=== PATIENT | female | born 1995 | race Caucasian/White ===

== ENCOUNTER 2017-10-11 01:08 | Observation (INO) | payer MEDICAID, SELFPAY ==
[2017-10-11] VITALS (28 sets, daily range): BP systolic 85–188; BP diastolic 49–90; PULSE 74–114; RESP 13–20; TEMP 36.6–37.3; O2SAT 97–100; BMI 24.2; BMI 21.4; BMI 21.5
[2017-10-11 01:23] LABS: Absolute Lymphocyte Count 1.87 X10^3/ul (0.83-4.51); Absolute Neutrophil Count 5.4 X10^3/uL (2.0-7.7); Basophil# 0.03 X10^3/uL; Basophil% 0.4 % (0-1); Eosinophil# 0.14 X10^3/uL; Eosinophils% 1.7 % (0-5); Hematocrit 40.1 % (37-47); Hemoglobin 12.8 g/dl (12.0-15.0); Lymphocyte # 1.87 X10^3/ul (4.0); Lymphocyte % 22.1 % (19-41); Mean Corp Hgb Conc 31.9 g/gl (32-36); Mean Corpuscular Volume 90.7 fL (81-99); Mean Platelet Vol. 10.8 fl (6.2-12.0); Monocyte# 1.05 X10^3/uL; Monocyte% 12.4 % (0-10); Neutrophil # 5.37 X10^3/uL (2.7-7.7); Neutrophil % 63.3 % (47-70); Platelet Count 227 K/mm3 (150-450); RBC Distribution Width CV 12.9 % (11.6-14.6); RBC Distribution Width SD 42.5 fl (35.1-43.9); Red Blood Count 4.42 M/mm3 (4.2-5.4); White Blood Count 8.5 K/mm3 (4.4-11.0)
[2017-10-11 01:25] LABS: POSITIVE COUNT NO; POSITIVE DIFFERENTIAL NO; POSITIVE MORPHOLOGY NO
[2017-10-11 01:32] LABS: Anion Gap 8 (5-15); BUN 17 mg/dL (7-18); BUN/Creat Ratio 19.5 RATIO (10-20); Calcium,Total 9.3 mg/dL (8.5-10.1); Chloride 108 mmol/L (98-107); Creatinine, Serum 0.87 mg/dL (0.55-1.02); EST Glomerular Filtration Rate 87 mL/min (>60); Est Glom Filt Rate - Afr Amer 105 mL/min (>60); Estimated Creatinine Clearance 95.76 ml/min; Glucose 94 mg/dL (74-106); Potassium 3.7 mmol/L (3.5-5.1); Sodium Level 141 mmol/L (136-145)
[2017-10-11] MEDS: Activated Charcoal/Sorbitol 50 GM/240 ML BOT PO (01:34)
--- NOTE | 2017-10-11 01:39 | ED.DCSUM_ITS ---
- ER Visit Summary Date of Service: 10/11/17 Chief Complaint: Reported overdose on possible blood pressure medications. History of Present Illness: The patient is a 22 F no significant past medical history. Ab0. Reportedly patient may have overdosed on blood pressure medication she had used in the past when she was . The label was ripped off of the bottle so we are unsure of the number of pills and what the medication is exactly. Reportedly there may have been as many as 30+ pills. She reportedly took this about 1 hour ago. Reportedly per the paramedics and family there was a suicide note left. She denies prior psychiatric history or prior suicide attempt. Family called the squad. Physical Examination: Young female. Vital signs are stable. She is afebrile. Her arms and legs are trembling that is intentional movement. HEENT exam unremarkable. Her eyes are closed but she will open them on command. There are equal and symmetrical. 3 mm bilaterally. No facial trauma. Moist mucous membranes. Neck nontender. No lymphadenopathy. Lungs clear to auscultation bilaterally. Heart regular rhythm no murmur. Rate about 85. Chest wall nontender. Abdomen soft nontender. No signs of trauma. Pelvic girdle intact. She is moving all 4 extremities. They are neurovascularly intact. She has equal symmetrical director of search engine optimization strength. No deformities. Equal and symmetrical radial and DP pulses. No signs of trauma. No track lopez. Back nontender. Skin unremarkable. Neurologically she is awake but she is a limited informant. She does follow commands. Test Results: CBC normal. Hemoglobin of 12. Normal white count. Electrolytes unremarkable. Normal gap of 8. Normal creatinine. Serum test negative. Tox screen pending. Alcohol negative. Salicylates negative. Tylenol negative. Emergency Department Course and Treatment: Patient will undergo ED mental health testing. This appears to be an intentional overdose as a suicide attempt. Depending on what the medication is this could be a serious attempt. She will be treated with charcoal since the medication was reportedly ingested within the last 1-2 hours. Currently her vital signs are stable as is her blood pressure and heart rate. Treatment Plan: According the patient's last Google search and a computer the overdose may have been nifedipine. I specifically asked her that and is unsure if that is what she took or not. She has been treated with oral charcoal and a liter of normal saline. Currently she is stable on her blood pressure and heart rate remained stable the entire time. Disposition: Admission Impression: Acute intentional overdose of uncertain medication Possible calcium channel joelle overdose Suicide attempt This note was generated with [employer] dictation software. It may contain incorrect words, spelling, and punctuation that were not noted in review of the chart prior to signing ED Disposition - Plan for ED Patient: Chief Complaint: Overdose Referrals: [facility] Doctor,Out of [NON-STAFF] -
--- OUTSIDE RECORDS SUMMARY | 2017-10-11 01:39 | XMS RPT_ITS ---
:1995 Demographics Phone Unavailable Preferred Language [facility] Marital Status Unknown Jewish Affiliation Unknown Race Unknown Ethnic Group Unknown Author Organization [place] Care Team Providers Name Role Phone Tavo Ashley Attending Unavailable PROBLEMS PROBLEMS No Problem Records FoundPROCEDURES PROCEDURES No Procedure Records FoundRESULTS RESULTS CBC W/DIFF, AUTOMATED Collected: 10/11/2017 Status: F Source: [place] 12:10 AM [facility] [place] CODE TESTS RESULT OUT OF RANGE REFERENCE UNITS LAB L100.1000 Normal 4.4-11.0 K/mm3 WBC 8.5 LAB L100.1200 Normal 4.2-5.4 M/mm3 RBC 4.42 LAB L100.1300 Normal 12.0-15.0 g/dl HGB 12.8 LAB L100.1400 Normal 37-47 % HCT 40.1 LAB L100.1500 Normal 81-99 fL MCV 90.7 LAB L100.1600 Normal 27.0-32.0 pg MCH 29.0 LAB L100.1700 Low 32-36 g/gl MCHC 31.9 LAB L100.1810 Normal 11.6-14.6 % RDW 12.9 CV LAB L100.1820 Normal 35.1-43.9 fl RDW 42.5 SD LAB L100.1900 Normal 150-450 K/mm3 PLT 227 LAB L100.2000 Normal 6.2-12.0 fl MPV 10.8 LAB L100.2100 Normal 47-70 % NEUT% 63.3 LAB L100.2200 Normal 19-41 % LY% 22.1 LAB L100.2300 High 0-10 % MONO% 12.4 LAB L100.2400 Normal 0-5 % EO% 1.7 LAB L100.2500 Normal 0-1 % BASO% 0.4 LAB L100.2550 Normal 0.0-0.9 % IM 0.100 GRAN % Result Comment: IG% - Immature Granulocytes (promyelocytes, myelocytes andmetamyelocytes) > 1% indicates that a LEFT SHIFT is Present. LAB L100.2620 Normal 2.0-7.7 X10 3/uL Absolute Neut 5.4 LAB L100.2720 Normal 0.83-4.51 X10 3/ul Absolute Lymph 1.87 Performed By: #### L100.0100 ####[facility] [id number] [place], [place], [id number] BASIC METABOLIC Collected: 10/11/2017 Status: F Source: [place] PROFILE (BMP) 12:10 AM [facility] [place] CODE TESTS RESULT OUT OF RANGE REFERENCE UNITS LAB L501.0100 Normal 74-106 mg/dL GLU 94 Result Comment: Please note revised GLUCOSE reference range pgizofyio21/02/2018. LAB L501.1000 Normal 7-18 mg/dL BUN 17 LAB L501.1100 Normal 0.55-1.02 mg/dL CREAT,SERUM 0.87 Result Comment: The validity of the calculated GFR AND GFRAA in patients over70 years has not been determined. Clinical correlation isessential. LAB L501.1110 Normal >60 mL/min EST GFR 87 Result Comment: Non- GFR Calc LAB L501.1115 Normal >60 mL/min EST GFR - 105 AA Result Comment: GFR Calc LAB L501.1255 Normal ml/min Estimated 95.76 CRCL LAB L501.1300 Normal 10-20 RATIO BUN/CRE 19.5 LAB L501.2200 Normal 8.5-10 mg/dL CA 9.3 .1 LAB L501.5300 Normal 136-14 mmol/L NA 141 5 LAB L501.5600 Normal 3.5-5. mmol/L K 3.7 1 LAB L501.5900 High 98-107 mmol/L CL 108 LAB L501.6100 Normal 21.0-3 mmol/L CO2 25.0 2.0 LAB L501.6200 Normal 5-15 GAP 8 Performed By: #### L500.2500 ####[facility] [id number] [place], [address] ALLERGIES ALLERGIES DATE TYPE / CODE NAME / CODE REACTION SEVERITY SOURCE 10/11/2017 Drug No Known Unknown [facility] Allergy/4160 Allergies/F00 [facility] [address]32(SNOMED [id number](RXNOR Repository CT) M) ENCOUNTERS ENCOUNTERS ADMIT/DISCHARGE ACCOUNT ADMITTING ENCOUNTER LOCATION SOURCE NUMBER CLASS 10/11/2017 [id number] Ambulatory [place] 6 [facility] ing:ED Repository PAYERS PAYERS ENCOUNTER GUARANTOR PAYER SUBSCRIBER SOURCE 10/11/2017 Primary NOT GIVENUNK [place] Insurance:SELF PAY [facility] Number: Effective Repository Date:2017-10-11
[2017-10-11 01:44] LABS: Pregnancy, Serum, hCG Quali. NEGATIVE Negative (0-9 Nonpreg)
[2017-10-11 01:53] LABS: Acetaminophen (Tylenol) Level < 2.0 ug/mL (10.0-30.0); Salicylate < 1.7 mg/dL (2.8-20.0)
--- NOTE | 2017-10-11 02:02 | ED.RN ---
PATIENT FAMILY THINKS PATIENTS MEDICATION SHE TOOK WAS NICARDIPINE 30 TABLETS
[2017-10-11] MEDS: 0.9% Normal Saline 1,000 ML 999 ML IV (02:24)
--- NOTE | 2017-10-11 03:01 | HP.PCM_ITS ---
Problem List (1) Overdose Status: Acute (2) QT prolongation Status: Acute History of Present Illness Date of Admission: 10/11/17 Chief Complaint: Intentional overdose The patient is a 22 year old F with last delivery 2 months ago who was brought by the paramedics because of an intentional overdose. After the delivery of her last baby, she was placed on blood pressure medication; as such she had some of this blood pressure medication with her. Patient reportedly took 20 pills of this blood pressure medication she had in stock. She is unsure of the exact name of the medication but she thinks it is nifedipine. Also, reportedly her last google search was on nifedipine. Reportedly,a suicidal note was found with patient. Since patient reached the emergency department about 1 hour after ingestion of the medication she was giving activated charcoal, which she drank. She also received normal saline bolus at emergency department. The patient stated that she lives at [place] with her but she came to was her mother in [place]. She reports left-sided chest pain and generalized abdominal pain. Patient personally denies suicide ideation to me. She is sure that she took exactly 20 pills of the unknown pill which may be nifedipine. Allegedly, she had taken out the label of the bottle of the medication which she took. Past Medical History Past Medical History (Chronic Problems): Chronic Problems (Last Updated 10/11/17 @ 03:14 by Flavio Nix MD) Hypertension (Chronic) Medical History: Medical History (Last Updated 10/11/17 @ 03:14 by Flavio Nix MD) Gestational hypertension O13.9 Allergies No Known Allergies Allergy (Verified 10/11/17 01:12) Home Medications: Ambulatory Orders Medication Instructions Recorded NK [NK] 10/11/17 Surgical History: - - Laparoscopic exploration of abdomen Psychiatric History: - - Denies any psychiatric Lives: With Family Smoking Status: Never smoker Tobacco Use: Non-smoker Alcohol: None Drugs: None Review of Systems Constitutional: Denies: Chills, Fever, Weight Change Eyes: Reports: Blurred vision HEENT: Denies: Head Aches, Sinus Congestion, Sinus Drainage Cardiovascular: Reports: Chest Pain Respiratory: Denies: Cough, Shortness of breath at rest, Sputum production Gastrointestinal: Reports: Abdominal Pain, Nausea Genitourinary: Denies: Dysuria Musculoskeletal: Denies: Joint Pain, Joint Tenderness Skin: Denies: Rash, Wounds Neurological: Denies: Numbness, Tingling, Focal weakness Psychiatric: Denies: Anxiety, Depression, Homicidal Ideations, Suicidal Ideations Hematologic/ Lymphatic: Denies: Easy Bruising, Easy Bleeding VTE Information - Inpt Only VTE Present on Admission: No VTE Mechan Device Prophylaxis: None VTE Pharm Prophylaxis ordered?: No Reason prophylaxis not ordered:: Treatment Not Indicated Patient Problems: Active and Suspected Problems (Last Updated 10/11/17 @ 03:14 by Flavio Nix MD) Overdose (Acute) QT prolongation (Acute) - Physical Exam General: Alert, Oriented x3, Cooperative HEENT: Atraumatic, PERRLA, EOMI, Normocephalic Neck: Supple, No JVD, Negative Carotid Bruits Lungs: Clear to auscultation, Normal air movement Cardiovascular: Regular rate, No murmurs Abdomen: Soft, Non Tender, Non-Distended Extremities: No edema, Capillary Refill Less than 3 Seconds Skin: No rashes, No breakdown Musculoskeletal: No Tenderness to Palpation of Joints or Extremities Neurological: Cranial nerves II-XII grossly intact Psych/Mental Status: Normal Affect, Appropriate Vital Signs Temp Pulse Resp BP Pulse Ox 97.9 F 94 16 123/73 H 99 10/11/17 01:09 10/11/17 02:39 10/11/17 02:39 10/11/17 02:39 10/11/17 02:39 Oxygen Delivery Method Room Air Weight: 68.1 kg Body Mass Index (BMI) 24.2 Laboratory Tests Past 24 Hrs 10/11/17 10/11/17 10/11/17 00:10 00:10 00:10 WBC 8.5 RBC 4.42 Hgb 12.8 Hct 40.1 MCV 90.7 MCH 29.0 MCHC 31.9 L RDW 12.9 RDW Differential 42.5 Plt Count 227 MPV 10.8 Immature Gran % (Auto) 0.100 Neut % (Auto) 63.3 Lymph % (Auto) 22.1 [place] % (Auto) 12.4 H Eos % (Auto) 1.7 Baso % (Auto) 0.4 Absolute Neuts (auto) 5.4 Absolute Lymphs (auto) 1.87 Total Counted Not Reportable Sodium 141 Potassium 3.7 Chloride 108 H Carbon Dioxide 25.0 Anion Gap 8 BUN 17 Creatinine 0.87 Estim Creat Clear Calc 95.76 Est GFR (MDRD) Af Amer 105 Est GFR (MDRD) Non-Af 87 BUN/Creatinine Ratio 19.5 Glucose 94 Calcium 9.3 Serum , Qual Salicylates Acetaminophen Ethyl Alcohol 10.0 10/11/17 10/11/17 00:10 01:10 WBC RBC Hgb Hct MCV MCH MCHC RDW RDW Differential Plt Count MPV Immature Gran % (Auto) Neut % (Auto) Lymph % (Auto) [place] % (Auto) Eos % (Auto) Baso % (Auto) Absolute Neuts (auto) Absolute Lymphs (auto) Total Counted Sodium Potassium Chloride Carbon Dioxide Anion Gap BUN Creatinine Estim Creat Clear Calc Est GFR (MDRD) Af Amer Est GFR (MDRD) Non-Af BUN/Creatinine Ratio Glucose Calcium Serum , Qual NEGATIVE Salicylates < 1.7 L Acetaminophen < 2.0 L Ethyl Alcohol Assessment/Plan All Active Problems (Last Updated 10/11/17 @ 03:14 by Flavio Nix MD) Overdose (Acute) QT prolongation (Acute) The patient is a 22 year old F who reportedly took 20 tablets of of an unknown pill, which may be nifedipine, and was given activated charcoal at emergency department. Intentional overdose Patient is hemodynamically stable. Supportive treatment with antiemetics and normal saline Close monitoring at the ICU Telemetry monitoring. Vital signs per ICU protocol Salicylate level, Tylenol level and ethanol level unremarkable DAU10 pending EKG ordered Serial troponin Repeat BMP and CBC in a.m. Suicidal precautions Reglan for nausea Ibuprofen for pain. QT prolongation Avoid QT prolongation drugs. Reglan for nausea. DVT prophylaxis Low risk No treatment indicated. Code Visit OBSV E&M: 14881 Initial observation care L3
--- NOTE | 2017-10-11 03:56 | EKG12_ITS ---
Test Reason : ADM EKG Blood Pressure : / mmHG Vent. Rate : 097 BPM Atrial Rate : 097 BPM P-R Int : 174 ms QRS Dur : 094 ms QT Int : 396 ms P-R-T Axes : 052 038 033 degrees QTc Int : 502 ms Normal sinus rhythm Prolonged QT Abnormal ECG Confirmed by BILL BROOKE, TIANA ([id number]), news video editor ALVINA FELIPE ([id number]) on 10/12/2017 12:55:40 PM Referred By: ANA CRISTINA Confirmed By:TIANA KHAN MD
[2017-10-11] MEDS: 0.9% Normal Saline 1,000 ML 75 ML IV (04:15)
[2017-10-11] MEDS: 0.9% NaCl Peripheral Flush Adult/Peds IV (04:15)
[2017-10-11 04:28] LABS: Anion Gap 12 (5-15); BUN 15 mg/dL (7-18); BUN/Creat Ratio 16.3 RATIO (10-20); Calcium,Total 8.3 mg/dL (8.5-10.1); Chloride 112 mmol/L (98-107); Creatinine, Serum 0.92 mg/dL (0.55-1.02); EST Glomerular Filtration Rate 82 mL/min (>60); Est Glom Filt Rate - Afr Amer 99 mL/min (>60); Estimated Creatinine Clearance 97.58 ml/min; Glucose 113 mg/dL (74-106); Potassium 3.8 mmol/L (3.5-5.1); Sodium Level 146 mmol/L (136-145)
--- NOTE | 2017-10-11 04:29 | NURSING ---
Spoke with Satish at poison control center. Satish suggests at least a 10 hour observation time, watch for hypotension, bradycardia, rebound tachycardia, and prolonged QT. Also recommend avoiding phenergan and zofran for nausea, give compazine instead.
[2017-10-11 05:34] LABS: Osmolality, Serum 302 mOsm/KG (275-295)
[2017-10-11 05:47] LABS: M R Staph aureus DNA By PCR Negative (Negative); Probe Check PASS; Specimen Processing Control PASS
--- NOTE | 2017-10-11 06:29 | PCM.CON.CC ---
Reason for Consult Date of Consultation: 10/11/17 Reason for Consultation: Intentional overdose History of Present Illness: The patient is a 22-year-old female, with a history as outlined below, who presented to the emergency department on October 11 after a reported intentional overdose of a presumed calcium channel joelle. The patient reports that she ingested approximately 20 tablets of her outpatient antihypertensive medication, which she believes is called nifedipine. She denies ever having attempted suicide previously. She does report having dealt with depression since delivering her last child 2 months ago. She has never been evaluated previously for underlying depression symptoms. On presentation to the emergency department, the patient was noted to be afebrile hemodynamically stable. She was maintaining appropriate oxygen saturations on room air. Laboratory evaluation revealed no evidence of a leukocytosis. Chemistry profile was largely unremarkable. test was negative. Troponins were negative. Toxicology screen was negative. The patient did receive activated charcoal while in the emergency department. She received supplemental IV fluids and was transferred to the medical intensive care unit for close monitoring. Past Medical History Past Medical History (Chronic Problems): Chronic Problems (Last Updated 10/11/17 @ 03:14 by Flavio Nix MD) Hypertension (Chronic) Medical History: Medical History (Last Updated 10/11/17 @ 03:14 by Flavio Nix MD) Gestational hypertension O13.9 Allergies No Known Allergies Allergy (Verified 10/11/17 01:12) Home Medications: Ambulatory Orders Medication Instructions Recorded NK [NK] 10/11/17 Surgical History: - - Laparoscopic exploration of abdomen Psychiatric History: - - Denies any psychiatric Lives: With Family Smoking Status: Never smoker Tobacco Use: Non-smoker Alcohol: None Drugs: None Review of Systems Constitutional: Denies: Chills, Fever Eyes: Denies: Blurred vision, Double vision HEENT: Denies: Head Aches, Sinus Congestion, Sinus Drainage Cardiovascular: Denies: Chest Pain, Light Headedness, Palpitations Respiratory: Denies: Cough, Shortness of breath at rest, Sputum production Gastrointestinal: Denies: Abdominal Pain, Nausea, Vomiting Genitourinary: Denies: Dysuria Musculoskeletal: Denies: Joint Pain, Joint Tenderness Skin: Denies: Rash, Wounds Neurological: Denies: Numbness, Tingling, Focal weakness Psychiatric: Reports: Depression Hematologic/ Lymphatic: Denies: Easy Bruising, Easy Bleeding Objective: The patient's most recent lab work, culture data and imaging studies have all been personally reviewed. - Physical Exam General: Alert, Oriented x3, Cooperative, No apparent distress HEENT: Atraumatic, PERRLA, Normocephalic Oral: No Gingival or Mucosal Lesions/ Ulcerations Neck: Supple, No Nodes, Trachea Midline Lungs: Normal air movement, No rhonchi, No wheeze, No rales Cardiovascular: Regular rate, Regular Rhythm, Normal S1, Normal S2, No murmurs, No rub noted, No Gallop Abdomen: Bowel Sounds Present, Soft, Non Tender, Non-Distended Extremities: No clubbing, No cyanosis, No edema Skin: No rashes, No breakdown Musculoskeletal: No Tenderness to Palpation of Joints or Extremities, No Muscle Wasting Lymphatic: No Cervical, Supraclavicular, or Inguinal Adenopathy Neurological: Neuro grossly intact Psych/Mental Status: Alert and oriented to time, place, person, mood and affect Vital Signs Temp Pulse Resp BP Pulse Ox 98.5 F 81 17 101/62 97 10/11/17 03:50 10/11/17 04:35 10/11/17 04:35 10/11/17 04:35 10/11/17 04:35 Oxygen Delivery Method Room Air Weight: 141 lb 5.061 oz Body Mass Index (BMI) 21.4 Intake and Output for Last 24 Hours 10/09/17 10/10/17 10/11/17 23:59 23:59 23:59 Intake Total 1145 / 1145 Output Total 400 / 400 Balance 745 / 745 Laboratory Tests Past 24 Hrs 10/11/17 10/11/17 10/11/17 03:45 03:45 03:45 Sodium 146 H Potassium 3.8 Chloride 112 H Carbon Dioxide 22.0 Anion Gap 12 BUN 15 Creatinine 0.92 Estim Creat Clear Calc 97.58 Est GFR (MDRD) Af Amer 99 Est GFR (MDRD) Non-Af 82 BUN/Creatinine Ratio 16.3 Glucose 113 H Serum Osmolality 302 H Calcium 8.3 L Troponin I MRSA (PCR) Negative 10/11/17 03:45 Sodium Potassium Chloride Carbon Dioxide Anion Gap BUN Creatinine Estim Creat Clear Calc Est GFR (MDRD) Af Amer Est GFR (MDRD) Non-Af BUN/Creatinine Ratio Glucose Serum Osmolality Calcium Troponin I < 0.015 MRSA (PCR) Assessment/Plan RECOMMENDATIONS: 1. Continue to monitor heart rate (Qt interval) and hemodynamics closely. 2. Continue supplemental IV fluids as needed. 3. Mobilize patient today. 4. Encourage incentive spirometer use while in bed. 5. Behavioral health/crisis evaluation. IMPRESSIONS: 1. Intentional overdose/suicide attempt The patient reportedly ingested approximately 20 tablets of nifedipine. She did receive activated charcoal in the emergency department. She has been hemodynamically stable overnight and did not experience any significant bradycardic events. Given her lack of symptoms, there is no indication for any additional aggressive measures. From my perspective, the patient is medically stable for evaluation by behavioral health/crisis today. Recommend mobilizing patient to ensure that she does not experience any dizziness or lightheadedness. 2. depression Recommend evaluation by behavioral health/crisis, as noted above. 3. Hypertension The patient's home antihypertensive regimen has been discontinued at this time. Will reevaluate the need for ongoing antihypertensive medication use, prior to discharge. This note was generated with [employer] dictation software. It may contain incorrect words, spelling, and punctuation that were not noted in checking the note before signing. Code Visit Inpatient E&M: 14012 Init Hosp L2
[2017-10-11 07:23] LABS: Amphetamine Urine VISTA NEGATIVE (<1000 ng/mL); Barbiturate Urine VISTA NEGATIVE (< 200 ng/mL); Benzodiazepine Urine VISTA NEGATIVE (< 200 ng/mL); Cocaine Urine VISTA NEGATIVE (< 300 ng/mL); Ecstacy Urine VISTA NEGATIVE (< 500 ng/mL); Methadone Urine VISTA NEGATIVE (< 300 ng/mL); PCP Urine VISTA NEGATIVE (< 25 ng/mL); THC Urine VISTA NEGATIVE (< 50 ng/mL); Vista UDS pH Range 6
[2017-10-11 09:47] LABS: Mucous, Urine 0 SEEN /hpf (<or=2+); Red Blood Cells-Urine 0 SEEN /hpf (0-5); White Blood Cells 0 SEEN /hpf (0-5)
[2017-10-11 09:51] LABS: Color, Urine Yellow (Yellow); Glucose, Dipstick Normal (Normal); Ketone-Dipstick Negative (Negative); Leukocyte Esterase-Dipstick Negative /ul (Negative); Nitrite-Dipstick Negative (Negative); Occult Blood-Urine Negative /ul (Negative); Protein-Dipstick Negative (Negative); Urine Bilirubin Dipstick Negative (Negative); Urine Clarity Clear (Clear); Urine Urobilinogen Normal (Normal)
[2017-10-11 10:12] LABS: Bacteria 1+ /hpf (None Seen); Squamous Epithelial Cells - UA 0-5 SEEN /hpf (5-10)
[2017-10-11] MEDS: Ibuprofen 400 MG Tablet PO ×2 (12:01→19:17)
[2017-10-11] MEDS: Metoclopramide 10 MG/2 ML Vial 5 MG IV (12:02)
--- NOTE | 2017-10-11 14:21 | CHAPLAIN ---
Type of Pastoral Visit _x__ Initial Visit ___ Follow-up Visit ___ On-call Visit ___ General Patient Visit ___ Spiritual Assessment ___ Family Conference ___ Bereavement ___ Rapid Response ___ Code Blue ___ Other (describe below) Pastoral Care Referral From _x__ Patient ___ Family _x__ Nurse ___ Physician ___ Fig Caprifier ___ Call Center Representative ___ Other (describe below) Sacrament/Intervention _x__ Active listening ___ Anointing ___ Jain ___ Bereavement ___ Communion _x__ Clara exploration ___ ___ Life review _x__ Prayer ___ Reconciliation ___ Sacrament of Sick _x__ Supportive presence ___ Wedding ___ Other (describe below) Pastoral Comments patient gives information on current family status and that she is now doing much better emotionally; pt welcomes prayer support and asks for help in accepting forgiveness for what I have done; pt says she will be staying with local family for a month or more and that should be a good situation she believes
--- NOTE | 2017-10-11 16:18 | PCM.PN.BLA ---
Progress Note [id number] lady who is 2 weeks admitted following an intentional drug overdose with with nifedipine. Patient denies any previous history of suicide attempts she however did experience depression. Patient has been admitted to the intensive care unit where she is currently undergoing close monitoring. Patient has been seen and examined. Her initial assessment including history and physical, diagnostic data as well as management orders reviewed Patient medically stable to be evaluated by the crisis team
--- NOTE | 2017-10-11 19:40 | NURSING ---
Pt d/c'd to [facility]. [facility] to transport. Pt off floor with squad without incident.
--- NOTE | 2017-10-12 07:23 | PCM.DC.SUM ---
Discharge Date and Diagnosis Date of Admission: 10/11/17 Date of Discharge: 10/11/17 - Primary Discharge Diagnosis Suicide attempt - Secondary Discharge Diagnosis Chronic Problems (Last Updated 10/11/17 @ 03:14 by Flavio Nix MD) Hypertension (Chronic) Hospital Course and Treatment Consultations 10/11/17 09:08 Consult: Mental Health/Crisis Routine Reason for consult?: Suicide attempt Date Notified:: 10/11/17 Time notified:: 09:08 Summary of Care Provided: Patient is a 22-year-old lady who is 2 month admitted following an intentional drug overdose with with nifedipine. Patient denied any previous history of suicide attempts she however did experience depression. Patient apparently took multiple tablets of nifedipine. Patient was admitted to the intensive care unit where she is currently undergoing close monitoring. Patient was evaluated by the crisis team after stabilization of her medical condition. Patient was deemed appropriate for inpatient treatment of his severe depression with suicidal attempt. The crisis team made arrangement for patient to be transferred. Discharge Diet: No Restrictions Home Medications: Medications to take at Discharge NK [NK] 10/11/17 Primary Care Physician: Laura Jacobson,Out of [NON-STAFF] - Medical Necessity - Tobacco Use Smoking Status: Never smoker Tobacco Use: Non-smoker Meaningful Use Info Meaningful Use Diagnoses (Choose all that apply): None applicable Code Visit OBSV E&M: 34134 Observation care discharge
== END 2017-10-11 19:40 ==
LOC: ED 01:36 → ICU 03:33
PROVIDERS: Internal Medicine Critical Care Medicine; Admitting Provider Hospitalist; Emergency Provider Emergency Medicine; Visit Provider Internal Medicine
DX: F53 Mental and behavioral disorders associated with the puerperium, not elsewhere classified (principal); T46.1X2A Poisoning by calcium-channel blockers, intentional self-harm, initial encounter; I10 Essential (primary) hypertension; Z79.899 Other long term (current) drug therapy; I45.81 Long QT syndrome
CPT/HCPCS: 80048; 80307; 80320; 80329; 81001; 83930; 84484; 84703; 85025; 87641; 93005; 96361; 96374; 99218; 99285; J7030; A4216; G0378; G0480

== ENCOUNTER → 2018-06-28 14:00 | Outpatient (CLI) | payer MEDICAID, SELFPAY ==
[2018-06-28 18:29] LABS: Chlamydia Trachomatis by PCR Negative (Negative); Neisserai gonorrhoeae by PCR Negative (Negative); Probe Check PASS; Specimen Processing Control PASS
[2018-06-28 18:30] LABS: Sample Adequacy Control PASS
[2018-07-01 13:03] LABS: HPV Reflexed? NOT INDICATED
== END ==
PROVIDERS: Visit Provider Obstetrics & Gynecology
DX: Z12.4 Encounter for screening for malignant neoplasm of cervix (principal); Z11.3 Encounter for screening for infections with a predominantly sexual mode of transmission
CPT/HCPCS: 87491; 87591; 88175; G0145

== ENCOUNTER 2018-07-06 10:01 | Emergency (ER) | payer MEDICAID, SELFPAY ==
[2018-07-06 10:02] VITALS: BP 143/95; PULSE 94; RESP 16; TEMP 36.9; O2SAT 99; BMI 21.1
[2018-07-06 10:28] LABS: Absolute Lymphocyte Count 1.34 X10^3/ul (0.83-4.51); Absolute Neutrophil Count 6.2 X10^3/uL (2.0-7.7); Basophil# 0.03 X10^3/uL; Basophil% 0.4 % (0-1); Eosinophil# 0.08 X10^3/uL; Eosinophils% 0.9 % (0-5); Hemoglobin 12.9 g/dl (12.0-15.0); Lymphocyte # 1.34 X10^3/ul (4.0); Lymphocyte % 15.7 % (19-41); Mean Corp Hgb Conc 33.1 g/gl (32-36); Mean Corpuscular Hgb 29.6 pg (27.0-32.0); Mean Corpuscular Volume 89.4 fL (81-99); Mean Platelet Vol. 10.4 fl (6.2-12.0); Monocyte# 0.81 X10^3/uL; Monocyte% 9.5 % (0-10); Neutrophil # 6.24 X10^3/uL (2.7-7.7); Neutrophil % 73.3 % (47-70); Platelet Count 234 K/mm3 (150-450); RBC Distribution Width CV 12.1 % (11.6-14.6); RBC Distribution Width SD 38.9 fl (35.1-43.9); Red Blood Count 4.36 M/mm3 (4.2-5.4); White Blood Count 8.5 K/mm3 (4.4-11.0)
[2018-07-06] MEDS: Metoclopramide 10 MG/2 ML Vial IV (10:30)
[2018-07-06] MEDS: DiphenhydrAMINE 50 MG/ML Syringe 25 MG IV (10:31)
[2018-07-06 10:32] LABS: POSITIVE COUNT NO; POSITIVE DIFFERENTIAL NO; POSITIVE MORPHOLOGY NO
[2018-07-06] MEDS: Acetaminophen 500 MG Tablet 1000 MG PO (10:33)
[2018-07-06 10:34] LABS: Anion Gap 4 (5-15); BUN 11 mg/dL (7-18); Calcium,Total 8.4 mg/dL (8.5-10.1); Chloride 108 mmol/L (98-107); Creatinine, Serum 0.73 mg/dL (0.55-1.02); EST Glomerular Filtration Rate 106 mL/min (>60); Est Glom Filt Rate - Afr Amer 128 mL/min (>60); Estimated Creatinine Clearance 121.25 ml/min; Glucose 98 mg/dL (74-106); Potassium 3.7 mmol/L (3.5-5.1); Sodium Level 137 mmol/L (136-145)
--- NOTE | 2018-07-06 10:40 | ED.VISSUMM ---
- ER Visit Summary Date of Service: 07/06/18 Chief Complaint: Headache History of Present Illness: The patient is a 22 F currently , last menstrual cycle May 23. Patient reports history of migraines. She states had a mild headache when she got up this morning that progressively worsened. She states the pain is above both eyes which is typical of her migraine pattern. She does have photophobia and had blurry vision from her right eye. Patient is also had this with prior migraines. She states she did vomit twice. Symptoms worsened while she was driving. She pulled over to the side of the road and called EMS. Patient states symptoms seem to be improving at this time. Physical Examination: Vital signs unremarkable. Patient sitting upright in bed in no acute distress. Heart is regular rate and rhythm. Lung sounds are clear. Abdomen soft nontender. Neuro exam is normal. Test Results: CBC and chemistry studies normal. Quant is 60,656. Emergency Department Course and Treatment: Patient was given Tylenol, Reglan, Benadryl, and IV fluids. On repeat evaluation she does feel improved. Bedside ultrasound is performed. There is evidence of an intrauterine with heartbeat noted. Treatment Plan: [] Disposition: Discharge Impression: 1. Migraine, improved 2. First trimester This note was generated with [employer] dictation software. It may contain incorrect words, spelling, and punctuation that were not noted in review of the chart prior to signing ED Disposition - Plan for ED Patient: Disposition: Home or Assisted Living Instructions: ED Headache Migraine Referrals: Deidre Root MD [STAFF PHYSICIAN] - Keep Margie appointment
[2018-07-06] MEDS: Ondansetron 4 MG/2 ML Vial IV (11:44)
[2018-07-06 12:50] VITALS: BP 108/65; PULSE 80; RESP 16; O2SAT 99
--- OUTSIDE RECORDS SUMMARY | 2018-07-06 18:06 | XMS RPT_ITS | CCD ---
:1995 External Reference #:[id number] Author Organization [facility] [employer] Care Team Providers Name Role Phone Unavailable Unavailable Unavailable Allergies Reported Allergen Reaction(s) Severity Date of Onset Location Amoxicillin Translations: [facility] [ amoxicillin] [facility] Repository Morphine Translations: [ [facility] morphine] [facility] Repository Results Result Name Value Range Unit Interpretation Flag Date Location auto diff on 2017-08-04 Basophils #/vol (Bld) 0.0 0.0-0.2 E3/mcL Normal 08-04-2017 [facility] ([id number]) Comment: Order Comment: Order Added by Discern Expert. Performed By: #### [id number] #### [facility] [place] [address] Basophils/100 WBC (Bld) 0.3 0.0-2.0 % Normal 08-04-2017 [facility] ([id number]) Comment: Order Comment: Order Added by Discern Expert. Performed By: #### [id number] #### [facility] [address] [place] [address] 17760 Eos Absolute 0.2 0.0-0.7 E3/mcL Normal 08-04-2017 [facility] (21383) Comment: Order Comment: Order Added by Discern Expert. Performed By: #### [id number] #### [facility] [place] [address] Eosinophils/100 WBC (Bld) 2.1 0.0-11.0 % Normal 08-04-2017 [facility] ([id number]) Comment: Order Comment: Order Added by Discern Expert. Performed By: #### [id number] #### [facility] [address] [place] [address] 21091 Lymphocytes #/vol (Bld) 2.3 1.2-3.4 E3/mcL Normal 08-04-2017 [facility] (00014) Comment: Order Comment: Order Added by Discern Expert. Performed By: #### [id number] #### [facility] [address] [place] [address] 00382 Lymphocytes/100 WBC (Bld) 20.2 20.0-55.0 % Normal 08-04-2017 [facility] (20390) Comment: Order Comment: Order Added by Discern Expert. Performed By: #### [id number] #### [facility] [address] [place] [address] [place] Absolute 1.1 0.0-0.7 E3/mcL High 08-04-2017 [facility] (25249) Comment: Order Comment: Order Added by Discern Expert. Performed By: #### [id number] #### [facility] [address] [place] [address] 93277 Monocytes/100 WBC (Bld) 9.6 0.0-10.0 % Normal 08-04-2017 [facility] (70645) Comment: Order Comment: Order Added by Discern Expert. Performed By: #### [id number] #### [facility] [address] [place] [address] 75059 Neutro Absolute 7.7 1.4-6.5 E3/mcL High 08-04-2017 [facility] (89811) Comment: Order Comment: Order Added by Discern Expert. Performed By: #### [id number] #### [facility] [address] [place] [address] 86443 Neutro Auto 67.8 37.0-75.0 % Normal 08-04-2017 [facility] (00431) Comment: Order Comment: Order Added by Discern Expert. Performed By: #### [id number] #### [facility] [address] [place] [address] 76204 c urine on 2018-06-15 C Urine Final Report: 7,000 cfu/ml Normal 06-15-2018 [facility] Streptococcus agalactiae System ([id number]) (Group B) Comment: Performed By: #### [id number] #### [facility] RemHemo [address] [place] [address] 45987 cbc w/ auto diff on 2017-08-04 Erythrocyte distribution 14.7 11.5-14.5 % High 08-04-2017 [facility] width Ratio (RBC) [facility] (86614) Comment: Performed By: #### [id number] #### [facility] [address] [place] [address] Hematocrit Volume Fraction 36.4 36.0-48.0 % Normal 08-04-2017 [facility] ([facility] ([id number]) Comment: Performed By: #### [id number] #### [facility] [address] [place] [address] Hemoglobin mass conc 12.0 12.0-16.0 G/DL Normal 08-04-2017 [facility] (d) [facility] (29592) Comment: Performed By: #### [id number] #### [facility] [address] [place] [address] MCH Entitic mass (RBC) 29.3 27.0-31.0 pg Normal 08-04-2017 [facility] ([id number]) Comment: Performed By: #### [id number] #### [facility] [address] [place] [address] MCHC mass conc (RBC) 32.9 33.0-37.0 G/DL Low 08-04-2017 [facility] (69461) Comment: Performed By: #### [id number] #### [facility] [address] [place] [address] MCV Entitic volume 89.0 78.0-100.0 fL Normal 08-04-2017 [facility] (RBC) System (78208) Comment: Performed By: #### [id number] #### [facility] [address] [place] [address] Platelet mean volume 10.1 7.4-11.0 fL Normal 08-04-2017 [facility] Entitic volume (Bld) System (39996) Comment: Performed By: #### [id number] #### [facility] [address] [place] [address] Platelets #/vol (Bld) 206 130-400 E3/mcL Normal 08-04-2017 [facility] (62219) Comment: Performed By: #### [id number] #### [facility] [address] [place] [address] RBC #/vol (Bld) 4.09 3.90-5.40 E6/mcL Normal 08-04-2017 [facility] (27295) Comment: Performed By: #### [id number] #### [facility] [address] [place] [address] WBC #/vol (Bld) 11.3 3.6-11.0 E3/mcL High 08-04-2017 [facility] (47387) Comment: Performed By: #### [id number] #### [facility] [address] [place], [place] [id number] Erythrocyte distribution 14.9 11.5-14.5 % High 08-04-2017 [facility] (RBC) [facility] (94105) Comment: Performed By: #### [id number] #### [facility] [address] [place] [address] Hematocrit Volume Fraction 34.8 36.0-48.0 % Low 08-04-2017 [facility] (d) System (48722) Comment: Performed By: #### [id number] #### [facility] [address] [place] [address] Hemoglobin mass conc (Bld) 11.7 12.0-16.0 G/DL Low 08-04-2017 [facility] (97442) Comment: Performed By: #### [id number] #### [facility] [address] [place], [place] [address] MCH Entitic mass (RBC) 29.6 27.0-31.0 pg Normal 08-04-2017 [facility] (25660) Comment: Performed By: #### [id number] #### [facility] [address] [place] [address] 30926 MCHC mass conc (RBC) 33.7 33.0-37.0 G/DL Normal 08-04-2017 [facility] (72935) Comment: Performed By: #### [id number] #### [facility] [address] [place] [address] 84433 MCV Entitic volume 87.8 78.0-100.0 fL Normal 08-04-2017 [facility] (RBC) System (17857) Comment: Performed By: #### [id number] #### [facility] [place] [address] Platelet mean volume 10.3 7.4-11.0 fL Normal 08-04-2017 [facility] Entitic volume (Bld) System (41617) Comment: Performed By: #### [id number] #### [facility] [address] [place] [address] Platelets #/vol (Bld) 190 130-400 E3/mcL Normal 08-04-2017 [facility] (85903) Comment: Performed By: #### [id number] #### [facility] [address] [place] [address] RBC #/vol (Bld) 3.97 3.90-5.40 E6/mcL Normal 08-04-2017 [facility] (00957) Comment: Performed By: #### [id number] #### [facility] [address] [place] [address] WBC #/vol (Bld) 13.4 3.6-11.0 E3/mcL High 08-04-2017 [facility] (25486) Comment: Performed By: #### [id number] #### [facility] [address] [place], [place] [address] bhcg quant on 2018-06-14 HCG.beta subunit Qn 1592.0 0.0-2.9 mIU/mL High 06-14-2018 [facility] (36213) Comment: Result Comment: FEMALE (NON-) & MALE <3 BORDERLINE 3 - 25 SUGGEST REPEAT TESTING FEMALE () 1 D - 1 WK 25 - 50 1 - 2 WK 50 - 500 2 - 3 WK 100 - 5000 3 - 4 WK 500 - 11853 4 - 5 WK 1000 - 32786 5 - 6 WK 59191 - 267602 6 - 8 WK 86278 - 387380 2 - 3 [place] [address] - 029965 Performed By: #### [id number] #### [facility] Rem[facility] [address] [place], [place] [address] us transvaginal on 2018-06-14 US Exam Date/Time: Normal 06-14-2018 [facility] Transvaginal 06/13/2018 23:37 [facility] Reason for Exam: System ([id number]) Ectopic Report STUDY: US Transvaginal 06/13/2018 11:37 pm INDICATION: Abdominal pain, cramping COMPARISON: None. ACCESSION NUMBER(S): [id number] ORDERING CLINICIAN: Shobha Puente TECHNIQUE: Transabdominal and endovaginal sonographic grayscale and color images of the pelvis were performed. Doppler arterial and venous waveform analysis of the ovaries is also performed. FINDINGS: The uterus measures 9 cm x 4.9 cm x 6.3 cm. There is a 3 mm x 2 mm x 2 mm intrauterine cystic structure. No definite evidence of yolk sac or pole. There is minimal nonspecific fluid in the endometrial canal. The right ovary measures 3.9 cm x 2.9 cm x 3.5 cm. 2.7 cm structure in the right ovary may correspond to corpus luteum. The left ovary measures 3.1 cm x 1.9 cm x 2 cm. Doppler arterial and venous flow is detected to both ovaries. No evidence of significant free pelvic fluid. IMPRESSION: 3 mm x 2 mm x 2 mm intrauterine cystic structure may correspond to a very early gestational sac. No definite evidence of yolk sac or pole. A pseudogestational sac of a nonvisualized ectopic is other likely differential consideration. Serial B-HCG and short-term follow-up ultrasound is therefore recommended in 10 days for further evaluation to assure normal progression of the . FINAL REPORT Dictated: 06/14/2018 0:46 am Rojas Bales MD Signed (Electronic Signature): 06/14/2018 0:46 am Signed by: Rojas Bales MD Technologist: ALAINA .manual abs on 2017-08-04 Basophil Abs Man 0.0 0.0-0.2 10x3/ Normal 08-04-2017 [facility] ([id number]) Comment: Order Comment: Order Added by Josué Expert. Performed By: #### [id number] #### [facility] [address] [place] [address] Eos Abs Man 0.1 0.0-0.5 10x3/ Normal 08-04-2017 [facility] (43145) Comment: Order Comment: Order Added by Josué Expert. Performed By: #### [id number] #### [facility] [address] [place] [address] 88089 Lymphocytes #/vol (Bld) 2.5 1.2-3.4 10x3/ Normal 08-04-2017 [facility] (77301) Comment: Order Comment: Order Added by Discern Expert. Performed By: #### [id number] #### [facility] [address] [place] [address] 80852 [place] Abs Man 1.2 0.0-0.7 10x3/ High 08-04-2017 [facility] (18774) Comment: Order Comment: Order Added by Discern Expert. Performed By: #### [id number] #### [facility] [address] [place] [address] 34746 Segs Abs Man 9.5 1.4-6.5 10x3/ High 08-04-2017 [facility] (31971) Comment: Order Comment: Order Added by Discern Expert. Performed By: #### [id number] #### [facility] [address] [place] [address] 65278 auto diff on 2018-06-13 Basophils #/vol (Bld) 0.1 0.0-0.2 E3/mcL Normal 06-13-2018 [facility] (19402) Comment: Order Comment: Order Added by Josué Expert. Performed By: #### [id number] #### [facility] Rem[facility]emo [address] [place] [address] 20237 Basophils/100 WBC (Bld) 0.6 0.0-2.0 % Normal 06-13-2018 [facility] ([id number]) Comment: Order Comment: Order Added by Discern Expert. Performed By: #### [id number] #### [facility] Rem[facility]emo [address] [place] [address] 89951 Eos Absolute 0.1 0.0-0.7 E3/mcL Normal 06-13-2018 [facility] (49926) Comment: Order Comment: Order Added by Discern Expert. Performed By: #### [id number] #### [facility] Rem[facility]emo [address] [place] [address] 05710 Eosinophils/100 WBC (Bld) 1.0 0.0-11.0 % Normal 06-13-2018 [facility] (56367) Comment: Order Comment: Order Added by Discern Expert. Performed By: #### [id number] #### [facility] Rem[facility]emo [address] [place] [address] Lymphocytes #/vol (Bld) 1.8 1.2-3.4 E3/mcL Normal 06-13-2018 [facility] (42337) Comment: Order Comment: Order Added by Discern Expert. Performed By: #### [id number] #### [facility] [place] [address] Lymphocytes/100 WBC (Bld) 17.6 20.0-55.0 % Low 06-13-2018 [facility] (71575) Comment: Order Comment: Order Added by Josué Expert. Performed By: #### [id number] #### [facility] YoungHemo [address] [place] [address] 07418 [place] Absolute 1.0 0.0-0.7 E3/mcL High 06-13-2018 [facility] (05741) Comment: Order Comment: Order Added by Josué Expert. Performed By: #### [id number] #### [facility] Rem[facility]emo [address] [place] [address] 97207 Monocytes/100 WBC (Bld) 9.9 0.0-10.0 % Normal 06-13-2018 [facility] (37738) Comment: Order Comment: Order Added by Josué Expert. Performed By: #### [id number] #### [facility] Rem[facility] [address] [place] [address] 81662 Neutro Absolute 7.1 1.4-6.5 E3/mcL High 06-13-2018 [facility] (04379) Comment: Order Comment: Order Added by Discern Expert. Performed By: #### [id number] #### [facility] [place] [address] Neutro Auto 70.9 37.0-75.0 % Normal 06-13-2018 [facility] (45757) Comment: Order Comment: Order Added by Discern Expert. Performed By: #### [id number] #### [facility] Rem[facility]emo [address] [place] [address] ua complete on 2018-06-13 Color Nom (U) Yellow Yellow Normal 06-13-2018 [facility] (71337) Comment: Performed By: #### [id number] #### [facility] Rem[facility]emo [address] [place] [address] Glucose mass conc (U) Negative Negative mg/dL Normal 06-13-2018 [facility] (34840) Comment: Performed By: #### [id number] #### [facility] Rem[facility]emo [address] [place] [address] Ketones Ql (U) Negative Negative Normal 06-13-2018 [facility] (73108) Comment: Performed By: #### [id number] #### [facility] Rem[facility]emo [address] [place] [address] UA Blood Negative Negative Normal 06-13-2018 [facility] (29251) Comment: Performed By: #### [id number] #### [facility] Rem[facility]emo [address] [place] [address] UA Clarity SltCloudy Clear Abnormal 06-13-2018 [facility] (83292) Comment: Performed By: #### [id number] #### [facility] RemHemo [address] [place] [address] UA Leuk Est 3+ Negative Abnormal 06-13-2018 [facility] (27542) Comment: Performed By: #### [id number] #### [facility] Rem[facility]emo [address] [place] [address] UA Mucous Trace Trace Abnormal 06-13-2018 [facility] (88389) Comment: Performed By: #### [id number] #### [facility] Rem[facility]emo [address] [place] [address] UA Nitrite Negative Negative Normal 06-13-2018 [facility] (07491) Comment: Performed By: #### [id number] #### [facility] Rem[facility]emo [address] [place] [address] UA pH 5.0 4.6-8.0 Normal 06-13-2018 [facility] (09773) Comment: Performed By: #### [id number] #### [facility] Rem[facility]emo [address] [place] [address] UA Protein 2+ Negative Abnormal 06-13-2018 [facility] (70289) Comment: Performed By: #### [id number] #### [facility] YoungHemo [address] [place] [address] UA Spec Grav 1.011 1.003-1.030 Normal 06-13-2018 [facility] (97297) Comment: Performed By: #### [id number] #### [facility] [place] [address] UA Squam Epithelial 0-5 0-5 Normal 06-13-2018 [facility] (74866) Comment: Performed By: #### [id number] #### [facility] YoungHemo [address] [place] [address] 39940 UA Urobilinogen Negative Normal 06-13-2018 [facility] (03388) Comment: Result Comment: Due to a manufacturing issue, low positive urobilinogen results may be fasely positive. Correlate with urine bilirubin and additional clinical/laboratory findings to assess the risk of hemolytic anemia or liver disease. If clinically indicated, repeat testing with an alternate method is available by contacting the laboratory within 24 hours. Performed By: #### [id number] #### [facility] Falcono [address] [place], [place] [address] UA WBC >50 0-5 Abnormal 06-13-2018 [facility] (68090) Comment: Performed By: #### [id number] #### [facility] Falcono [address] [place], [place] [address] Urobilinogen Qn (U) Negative Negative Normal 06-13-2018 [facility] (10885) Comment: Performed By: #### [id number] #### [facility] Falcono [address] [place], [place] [address] u bhcg qlt on 2018-06-13 HCG.beta subunit Qn Pos Neg m[IU]/mL Normal 06-13-2018 [facility] (20337) Comment: Performed By: #### [id number] #### [facility] Falcono [address] [place], [place] [address] cbc w/ auto diff on 2018-06-13 Erythrocyte distribution 12.7 11.5-14.5 % Normal 06-13-2018 [facility] width [facility] (RBC) [facility] (57172) Comment: Performed By: #### [id number] #### [facility] RemHemo [address] [place] [address] Hematocrit Volume Fraction 38.2 36.0-48.0 % Normal 06-13-2018 [facility] (57224) Comment: Performed By: #### [id number] #### [facility] RemHemo [address] [place] [id number] Hemoglobin mass conc 12.8 12.0-16.0 G/DL Normal 06-13-2018 [facility] (27687) Comment: Performed By: #### [id number] #### [facility] RemHemo [address] [place] [address] MCH Entitic mass (RBC) 31.0 27.0-31.0 pg Normal 06-13-2018 [facility] (73904) Comment: Performed By: #### [id number] #### [facility] Rem[facility] [place] [address] MCHC mass conc (RBC) 33.5 33.0-37.0 G/DL Normal 06-13-2018 [facility] (98823) Comment: Performed By: #### [id number] #### [facility] Rem[facility]emo [facility] [place] [address] MCV Entitic volume 92.6 78.0-100.0 fL Normal 06-13-2018 [facility] (RBC) [facility] (03940) Comment: Performed By: #### [id number] #### [facility] Rem[facility]emo [facility] [place] [id number] Platelet mean volume 9.2 7.4-11.0 fL Normal 06-13-2018 [facility] Entitic volume (Bld) System (52282) Comment: Performed By: #### [id number] #### [facility] RemHemo [address] [place] [address] Platelets #/vol (Bld) 236 130-400 E3/mcL Normal 06-13-2018 [facility] (82619) Comment: Performed By: #### [id number] #### [facility] RemHemo [address] [place] [address] RBC #/vol (Bld) 4.13 3.90-5.40 E6/mcL Normal 06-13-2018 [facility] (14139) Comment: Performed By: #### [id number] #### [facility] YoungHemo [address] [place] [address] WBC #/vol (Bld) 10.0 3.6-11.0 E3/mcL Normal 06-13-2018 [facility] (21889) Comment: Performed By: #### [id number] #### [facility] Falcon[facility] [place] [address] egfr on 2018-06-13 GFR/1.73 sq M predicted >60 mL/min/{1.73_m2} Normal 06-13-2018 [facility] among non-blacks [facility] (60979) vol rate/area (S/P/Bld) Comment: Order Comment: Order Added by Discern Expert. Performed By: #### [id number] #### [facility] [place] [address] bmp on 2018-06-13 Anion gap molar conc 12 10-20 mEq/L Normal 06-13-2018 [facility] (63028) Comment: Performed By: #### [id number] #### [facility] [place] [address] Calcium mass conc 9.2 8.6-10.3 mg/dL Normal 06-13-2018 [facility] (85640) Comment: Performed By: #### [id number] #### [facility] [place] [address] Chloride molar conc 109 98-107 mEq/L High 06-13-2018 [facility] (35075) Comment: Performed By: #### [id number] #### [facility] RemHemo [address] [place] [address] CO2 molar conc 23.0 21.0-32.0 mEq/L Normal 06-13-2018 [facility] (25390) Comment: Performed By: #### [id number] #### [facility] RemHemo [address] [place] [address] Creatinine mass conc 0.8 0.5-1.1 mg/dL Normal 06-13-2018 [facility] (55286) Comment: Performed By: #### [id number] #### [facility] RemHemo [address] [place] [address] Glucose mass conc 97 70-99 mg/dL Normal 06-13-2018 [facility] (15130) Comment: Performed By: #### [id number] #### [facility] RemHemo [address] [place] [address] Potassium molar conc 3.5 3.5-5.3 mEq/L Normal 06-13-2018 [facility] (56098) Comment: Performed By: #### [id number] #### [facility] RemHemo [address] [place] [address] Sodium molar conc 140 136-145 mEq/L Normal 06-13-2018 [facility] (44421) Comment: Performed By: #### [id number] #### [facility] [place] [address] Urea nitrogen mass conc 13 6-23 mg/dL Normal 06-13-2018 [facility] (66820) Comment: Performed By: #### [id number] #### [facility] Rem[facility] [place] [address] Urea nitrogen/Creatinine mass 16.2 5.4-30.0 ratio Normal 06-13-2018 [facility] (33722) Comment: Performed By: #### [id number] #### [facility] RemHemo [address] [place] [address] 96372 cbc w/ auto diff on 2017-08-03 Erythrocyte distribution 14.9 11.5-14.5 % High 08-03-2017 [facility] (RBC[facility] (56303) Comment: Order Comment: For positive results only; Penicillin is the recommended antibiotic for the treatment of Group B Streptococcal disease. In case of penicillin allergy, Clindamycin may be used. All Negative GBS Screens by PCR will be confirmed by culture. Performed By: #### [id number] #### [facility] [address] [place] [address] 76431 Hematocrit Volume Fraction 35.7 36.0-48.0 % Low 08-03-2017 [facility] (Bld) System (88607) Comment: Order Comment: For positive results only; Penicillin is the recommended antibiotic for the treatment of Group B Streptococcal disease. In case of penicillin allergy, Clindamycin may be used. All Negative GBS Screens by PCR will be confirmed by culture. Performed By: #### [id number] #### [facility] [address] [place] [address] Hemoglobin mass conc (Bld) 11.7 12.0-16.0 G/DL Low 08-03-2017 [facility] (88866) Comment: Order Comment: For positive results only; Penicillin is the recommended antibiotic for the treatment of Group B Streptococcal disease. In case of penicillin allergy, Clindamycin may be used. All Negative GBS Screens by PCR will be confirmed by culture. Performed By: #### [id number] #### [facility] [address] [place] [address] MCH Entitic mass (RBC) 29.0 27.0-31.0 pg Normal 08-03-2017 [facility] (47397) Comment: Order Comment: For positive results only; Penicillin is the recommended antibiotic for the treatment of Group B Streptococcal disease. In case of penicillin allergy, Clindamycin may be used. All Negative GBS Screens by PCR will be confirmed by culture. Performed By: #### [id number] #### [facility] [address] [place] [address] MCHC mass conc (RBC) 32.7 33.0-37.0 G/DL Low 08-03-2017 [facility] (39353) Comment: Order Comment: For positive results only; Penicillin is the recommended antibiotic for the treatment of Group B Streptococcal disease. In case of penicillin allergy, Clindamycin may be used. All Negative GBS Screens by PCR will be confirmed by culture. Performed By: #### [id number] #### [facility] [address] [place] [address] MCV Entitic volume 88.6 78.0-100.0 fL Normal 08-03-2017 [facility] (RBC) [facility] (11418) Comment: Order Comment: For positive results only; Penicillin is the recommended antibiotic for the treatment of Group B Streptococcal disease. In case of penicillin allergy, Clindamycin may be used. All Negative GBS Screens by PCR will be confirmed by culture. Performed By: #### [id number] #### [facility] [address] [place] [address] 91706 Platelet mean volume 10.8 7.4-11.0 fL Normal 08-03-2017 [facility] Entitic volume (Bld) System (30133) Comment: Order Comment: For positive results only; Penicillin is the recommended antibiotic for the treatment of Group B Streptococcal disease. In case of penicillin allergy, Clindamycin may be used. All Negative GBS Screens by PCR will be confirmed by culture. Performed By: #### [id number] #### [facility] Microbiology Subsection [address] [place] [address] Platelets #/vol (Bld) 196 130-400 E3/mcL Normal 08-03-2017 [facility] ([id number]) Comment: Order Comment: For positive results only; Penicillin is the recommended antibiotic for the treatment of Group B Streptococcal disease. In case of penicillin allergy, Clindamycin may be used. All Negative GBS Screens by PCR will be confirmed by culture. Performed By: #### [id number] #### [facility] Microbiology Subsection [address] [place] [address] RBC #/vol (Bld) 4.04 3.90-5.40 E6/mcL Normal 08-03-2017 [facility] ([id number]) Comment: Order Comment: For positive results only; Penicillin is the recommended antibiotic for the treatment of Group B Streptococcal disease. In case of penicillin allergy, Clindamycin may be used. All Negative GBS Screens by PCR will be confirmed by culture. Performed By: #### [id number] #### [facility] Microbiology Subsection [address] [place] [address] WBC #/vol (Bld) 16.1 3.6-11.0 E3/mcL High 08-03-2017 [facility] ([id number]) Comment: Order Comment: For positive results only; Penicillin is the recommended antibiotic for the treatment of Group B Streptococcal disease. In case of penicillin allergy, Clindamycin may be used. All Negative GBS Screens by PCR will be confirmed by culture. Performed By: #### [id number] #### [facility] Microbiology Subsection [address] [place] [address] Erythrocyte distribution 14.5 11.5-14.5 % Normal 08-03-2017 [facility] width Ratio ([facility]) [facility] ([id number]) Comment: Performed By: #### [id number] #### [facility] YoungHemo [address] [id number] Hematocrit Volume Fraction 37.7 36.0-48.0 % Normal 08-03-2017 [facility] ([id number]) Comment: Performed By: #### [id number] #### [facility] YoungHemo [address] [id number] Hemoglobin mass conc 12.5 12.0-16.0 G/DL Normal 08-03-2017 [facility] (80173) Comment: Performed By: #### [id number] #### [facility] YoungHemo [facility] [id number] MCH Entitic mass (RBC) 28.9 27.0-31.0 pg Normal 08-03-2017 [facility] (72882) Comment: Performed By: #### [id number] #### [facility] YoungHemo [facility] [place] [address] MCHC mass conc (RBC) 33.0 33.0-37.0 G/DL Normal 08-03-2017 [facility] ([id number]) Comment: Performed By: #### [id number] #### [facility] YoungHemo [address] [place], [place] [address] MCV Entitic volume 87.6 78.0-100.0 fL Normal 08-03-2017 [facility] (RBC) [facility] (61769) Comment: Performed By: #### [id number] #### [facility] YoungHemo [address] [place], [place] [address] Platelet mean volume 10.4 7.4-11.0 fL Normal 08-03-2017 [facility] Entitic volume (Bld) System (15763) Comment: Performed By: #### [id number] #### [facility] YoungHemo [facility] [id number] Platelets #/vol (Bld) 207 130-400 E3/mcL Normal 08-03-2017 [facility] ([id number]) Comment: Performed By: #### [id number] #### [facility] HannahHemo [facility] [address] RBC #/vol (Bld) 4.31 3.90-5.40 E6/mcL Normal 08-03-2017 [facility] (06233) Comment: Performed By: #### [id number] #### [facility] YoungHemo [address] [place] [address] WBC #/vol (Bld) 13.2 3.6-11.0 E3/mcL High 08-03-2017 [facility] (09725) Comment: Performed By: #### [id number] #### [facility] HannahHemo [address] [place], [place] [address] cbc w/ auto diff on 2017-08-05 Erythrocyte distribution 15.1 11.5-14.5 % High 08-05-2017 [facility] (RBC[facility] (15718) Comment: Performed By: #### [id number] #### [facility] YoungHemo [facility] [id number] Hematocrit Volume Fraction 34.7 36.0-48.0 % Low 08-05-2017 [facility] (d) System (63023) Comment: Performed By: #### [id number] #### [facility] HannahHemo [address] [id number] Hemoglobin mass conc (Bld) 11.4 12.0-16.0 G/DL Low 08-05-2017 [facility] ([id number]) Comment: Performed By: #### [id number] #### [facility] YoungHemo [facility] [address] MCH Entitic mass (RBC) 29.4 27.0-31.0 pg Normal 08-05-2017 [facility] ([id number]) Comment: Performed By: #### [id number] #### [facility] RemHemo [address] [place] [address] MCHC mass conc (RBC) 32.9 33.0-37.0 G/DL Low 08-05-2017 [facility] (33665) Comment: Performed By: #### [id number] #### [facility] RemHemo [address] [place] [address] MCV Entitic volume 89.3 78.0-100.0 fL Normal 08-05-2017 [facility] (RBC) [facility] (12489) Comment: Performed By: #### [id number] #### [facility] HannahHemo [address] [id number] Platelet mean volume 9.9 7.4-11.0 fL Normal 08-05-2017 [facility] Entitic volume (Bld) System (60159) Comment: Performed By: #### [id number] #### [facility] HannahHemo [facility] [address] Platelets #/vol (Bld) 214 130-400 E3/mcL Normal 08-05-2017 [facility] (39917) Comment: Performed By: #### [id number] #### [facility] HannahHemo [facility] [place] [address] RBC #/vol (Bld) 3.89 3.90-5.40 E6/mcL Low 08-05-2017 [facility] ([id number]) Comment: Performed By: #### [id number] #### [place] [address] WBC #/vol (Bld) 11.1 3.6-11.0 E3/mcL High 08-05-2017 [facility] (39513) Comment: Performed By: #### [id number] #### [address] [id number] placenta pathology request - no exam on 2017-08-05 Placenta Pathology Request Collected Normal 08-05-2017 [facility] - NO EXAM System ([id number]) Comment: Performed By: #### [id number] #### MIRTA HannahHemo [address] [place], [place] [address] hep func panel on 2017-08-05 Albumin mass conc 2.7 3.2-5.0 G/DL Low 08-05-2017 [facility] (96254) Comment: Performed By: #### [id number] #### [facility] HannahHemo [facility] [address] Albumin/Globulin mass ratio 1.0 1.1-1.9 ratio Low 08-05-2017 [facility] (41406) Comment: Performed By: #### [id number] #### [facility] HannahHemo [facility] [address] Alk Phos 107 42-121 Int._Unit/L Normal 08-05-2017 [facility] (12106) Comment: Performed By: #### [id number] #### M[facility]TA [address] [address] ALT enzyme act/vol 14 10-40 Int._Unit/L Normal 08-05-2017 [facility] ([id number]) Comment: Performed By: #### [id number] #### MIRTA Falcon[address] [address] AST enzyme act/vol 26 10-42 Int._Unit/L Normal 08-05-2017 [facility] ([id number]) Comment: Performed By: #### [id number] #### [address] [id number] Bili Direct <.10 .00-.20 Normal 08-05-2017 [facility] (63971) Comment: Performed By: #### [id number] #### [address] [id number] Bili Indirect >0.2 Normal 08-05-2017 [facility] (00145) Comment: Result Comment: No established ranges available for the Indirect Biliruben. Performed By: #### [id number] #### [place] [address] Bili Total 0.3 0.2-1.0 mg/dL Normal 08-05-2017 [facility] (23884) Comment: Performed By: #### [id number] #### MIRTA Falcon[address] [address] Globulin mass conc (S) 2.7 2.0-4.0 G/DL Normal 08-05-2017 [facility] (74241) Comment: Performed By: #### [id number] #### MIRTA Falcon[address] [address] Protein mass conc 5.4 6.4-8.3 G/DL Low 08-05-2017 [facility] (70942) Comment: Performed By: #### [id number] #### [address] [id number] cmp on 2017-08-03 Albumin mass conc 2.8 3.2-5.0 G/DL Low 08-03-2017 [facility] (58596) Comment: Order Comment: For positive results only; Penicillin is the recommended antibiotic for the treatment of Group B Streptococcal disease. In case of penicillin allergy, Clindamycin may be used. All Negative GBS Screens by PCR will be confirmed by culture. Performed By: #### [id number] #### [facility] Microbiology Subsection [address] [place], [place] [address] Albumin/Globulin mass ratio 0.8 1.1-1.9 ratio Low 08-03-2017 [facility] (39078) Comment: Order Comment: For positive results only; Penicillin is the recommended antibiotic for the treatment of Group B Streptococcal disease. In case of penicillin allergy, Clindamycin may be used. All Negative GBS Screens by PCR will be confirmed by culture. Performed By: #### [id number] #### [facility] Microbiology Subsection [address] [place] [address] Alk Phos 137 42-121 Int._Unit/L High 08-03-2017 [facility] (20624) Comment: Order Comment: For positive results only; Penicillin is the recommended antibiotic for the treatment of Group B Streptococcal disease. In case of penicillin allergy, Clindamycin may be used. All Negative GBS Screens by PCR will be confirmed by culture. Performed By: #### [id number] #### [facility] Microbiology Subsection [address] [place] [address] ALT enzyme act/vol 14 10-40 Int._Unit/L Normal 08-03-2017 [facility] (25571) Comment: Order Comment: For positive results only; Penicillin is the recommended antibiotic for the treatment of Group B Streptococcal disease. In case of penicillin allergy, Clindamycin may be used. All Negative GBS Screens by PCR will be confirmed by culture. Performed By: #### [id number] #### [facility] Microbiology Subsection [address] [place] [address] AST enzyme act/vol 27 10-42 Int._Unit/L Normal 08-03-2017 [facility] (69311) Comment: Order Comment: For positive results only; Penicillin is the recommended antibiotic for the treatment of Group B Streptococcal disease. In case of penicillin allergy, Clindamycin may be used. All Negative GBS Screens by PCR will be confirmed by culture. Performed By: #### [id number] #### [facility] Microbiology Subsection [address] [place] [address] Bili Total 0.9 0.2-1.0 mg/dL Normal 08-03-2017 [facility] (45882) Comment: Order Comment: For positive results only; Penicillin is the recommended antibiotic for the treatment of Group B Streptococcal disease. In case of penicillin allergy, Clindamycin may be used. All Negative GBS Screens by PCR will be confirmed by culture. Performed By: #### [id number] #### [facility] Subsection [address] [place], [place] [address] Calcium mass conc 8.8 8.4-10.2 mg/dL Normal 08-03-2017 [facility] (00010) Comment: Order Comment: For positive results only; Penicillin is the recommended antibiotic for the treatment of Group B Streptococcal disease. In case of penicillin allergy, Clindamycin may be used. All Negative GBS Screens by PCR will be confirmed by culture. Performed By: #### [id number] #### [facility] Microbiology Subsection [address] [place] [address] Chloride molar conc 105 98-107 mEq/L Normal 08-03-2017 [facility] (57313) Comment: Order Comment: For positive results only; Penicillin is the recommended antibiotic for the treatment of Group B Streptococcal disease. In case of penicillin allergy, Clindamycin may be used. All Negative GBS Screens by PCR will be confirmed by culture. Performed By: #### [id number] #### [facility] Microbiology Subsection [address] [place] [address] CO2 molar conc 21.4 24.0-30.0 mEq/L Low 08-03-2017 [facility] (93481) Comment: Order Comment: For positive results only; Penicillin is the recommended antibiotic for the treatment of Group B Streptococcal disease. In case of penicillin allergy, Clindamycin may be used. All Negative GBS Screens by PCR will be confirmed by culture. Performed By: #### [id number] #### [facility] Microbiology Subsection [address] [place], [place] [address] Creatinine mass conc 0.8 0.6-1.3 mg/dL Normal 08-03-2017 [facility] (36060) Comment: Order Comment: For positive results only; Penicillin is the recommended antibiotic for the treatment of Group B Streptococcal disease. In case of penicillin allergy, Clindamycin may be used. All Negative GBS Screens by PCR will be confirmed by culture. Performed By: #### [id number] #### [facility] Microbiology Subsection [address] [place], [place] [address] Globulin mass conc (S) 3.4 2.0-4.0 G/DL Normal 08-03-2017 [facility] (97389) Comment: Order Comment: For positive results only; Penicillin is the recommended antibiotic for the treatment of Group B Streptococcal disease. In case of penicillin allergy, Clindamycin may be used. All Negative GBS Screens by PCR will be confirmed by culture. Performed By: #### [id number] #### [facility] Microbiology Subsection [address] [place], [place] [address] Glucose mass conc 72 70-99 mg/dL Normal 08-03-2017 [facility] (51720) Comment: Order Comment: For positive results only; Penicillin is the recommended antibiotic for the treatment of Group B Streptococcal disease. In case of penicillin allergy, Clindamycin may be used. All Negative GBS Screens by PCR will be confirmed by culture. Performed By: #### [id number] #### [facility] Microbiology Subsection [address] [place], [place] [address] Potassium molar conc 3.7 3.5-5.1 mEq/L Normal 08-03-2017 [facility] (39974) Comment: Order Comment: For positive results only; Penicillin is the recommended antibiotic for the treatment of Group B Streptococcal disease. In case of penicillin allergy, Clindamycin may be used. All Negative GBS Screens by PCR will be confirmed by culture. Performed By: #### [id number] #### [facility] Microbiology Subsection [address] [place], [place] [address] Protein mass conc 6.2 6.4-8.3 G/DL Low 08-03-2017 [facility] (51298) Comment: Order Comment: For positive results only; Penicillin is the recommended antibiotic for the treatment of Group B Streptococcal disease. In case of penicillin allergy, Clindamycin may be used. All Negative GBS Screens by PCR will be confirmed by culture. Performed By: #### [id number] #### [facility] Microbiology Subsection [address] [place] [address] Sodium molar conc 135 136-145 mEq/L Low 08-03-2017 [facility] (25235) Comment: Order Comment: For positive results only; Penicillin is the recommended antibiotic for the treatment of Group B Streptococcal disease. In case of penicillin allergy, Clindamycin may be used. All Negative GBS Screens by PCR will be confirmed by culture. Performed By: #### [id number] #### [facility] Microbiology Subsection [address] [place] [address] Urea nitrogen mass conc 10 7-18 mg/dL Normal 08-03-2017 [facility] (73866) Comment: Order Comment: For positive results only; Penicillin is the recommended antibiotic for the treatment of Group B Streptococcal disease. In case of penicillin allergy, Clindamycin may be used. All Negative GBS Screens by PCR will be confirmed by culture. Performed By: #### [id number] #### [facility] Microbiology Subsection [address] [place], [place] [address] Urea nitrogen/Creatinine mass 12.5 5.4-30.0 ratio Normal 08-03-2017 [facility] (11020) Comment: Order Comment: For positive results only; Penicillin is the recommended antibiotic for the treatment of Group B Streptococcal disease. In case of penicillin allergy, Clindamycin may be used. All Negative GBS Screens by PCR will be confirmed by culture. Performed By: #### [id number] #### [facility] Microbiology Subsection [address] [place] [address] cmp on 2017-08-04 Albumin mass conc 2.8 3.2-5.0 G/DL Low 08-04-2017 [facility] (31038) Comment: Performed By: #### [id number] #### [facility] Microbiology Subsection [address] [place] [address] Albumin/Globulin mass ratio 0.9 1.1-1.9 ratio Low 08-04-2017 [facility] (35546) Comment: Performed By: #### [id number] #### [facility] Microbiology Subsection [address] [place] [address] Alk Phos 121 42-121 Int._Unit/L Normal 08-04-2017 [facility] (80289) Comment: Performed By: #### [id number] #### [facility] Microbiology Subsection [address] [place] [address] ALT enzyme act/vol 15 10-40 Int._Unit/L Normal 08-04-2017 [facility] (30138) Comment: Performed By: #### [id number] #### [facility] Microbiology Subsection [address] [place] [address] AST enzyme act/vol 27 10-42 Int._Unit/L Normal 08-04-2017 [facility] (35483) Comment: Performed By: #### [id number] #### [facility] Microbiology Subsection [address] [place] [address] Bili Total 0.5 0.2-1.0 mg/dL Normal 08-04-2017 [facility] (83939) Comment: Performed By: #### [id number] #### [facility] Microbiology Subsection [address] [place] [address] Creatinine mass conc 0.8 0.6-1.3 mg/dL Normal 08-04-2017 [facility] (46597) Comment: Performed By: #### [id number] #### [facility] Microbiology Subsection [address] [place] [address] Globulin mass conc (S) 3.1 2.0-4.0 G/DL Normal 08-04-2017 [facility] (66292) Comment: Performed By: #### [id number] #### [facility] Microbiology Subsection [address] [place] [address] Protein mass conc 5.9 6.4-8.3 G/DL Low 08-04-2017 [facility] (67475) Comment: Performed By: #### [id number] #### [facility] Microbiology Subsection [address] [place] [address] Urea nitrogen mass conc 7 7-18 mg/dL Normal 08-04-2017 [facility] (67038) Comment: Performed By: #### [id number] #### [facility] Microbiology Subsection [address] [place] [address] Urea nitrogen/Creatinine mass 8.8 5.4-30.0 ratio Normal 08-04-2017 [facility] (32997) Comment: Performed By: #### [id number] #### [facility] Microbiology Subsection [address] [place] [address] Calcium mass conc 7.2 8.4-10.2 mg/dL Low 08-04-2017 [facility] (13822) Comment: Performed By: #### [id number] #### [facility] Microbiology Subsection [address] [place] [address] Chloride molar conc 104 98-107 mEq/L Normal 08-04-2017 [facility] (20954) Comment: Performed By: #### [id number] #### [facility] Microbiology Subsection [address] [place] [address] CO2 molar conc 23.0 24.0-30.0 mEq/L Low 08-04-2017 [facility] (59821) Comment: Performed By: #### [id number] #### [facility] Microbiology Subsection [address] [place] [address] Glucose mass conc 94 70-99 mg/dL Normal 08-04-2017 [facility] (93646) Comment: Performed By: #### [id number] #### [facility] Microbiology Subsection [address] [place] [address] Potassium molar conc 3.8 3.5-5.1 mEq/L Normal 08-04-2017 [facility] (04920) Comment: Performed By: #### [id number] #### [facility] Microbiology Subsection [address] [place] [address] Sodium molar conc 133 136-145 mEq/L Low 08-04-2017 [facility] (40387) Comment: Performed By: #### [id number] #### [facility] Microbiology Subsection [address] [place] [address] Albumin mass conc 2.7 3.2-5.0 G/DL Low 08-04-2017 [facility] (06349) Comment: Performed By: #### [id number] #### [facility] Microbiology Subsection [address] [place] [address] Albumin/Globulin mass ratio 0.9 1.1-1.9 ratio Low 08-04-2017 [facility] (88263) Comment: Performed By: #### [id number] #### [facility] Microbiology Subsection [address] [place] [address] Alk Phos 125 42-121 Int._Unit/L High 08-04-2017 [facility] (62882) Comment: Performed By: #### [id number] #### [facility] Microbiology Subsection [address] [place] [address] ALT enzyme act/vol 14 10-40 Int._Unit/L Normal 08-04-2017 [facility] (12368) Comment: Performed By: #### [id number] #### [facility] Microbiology Subsection [address] [place] [address] AST enzyme act/vol 27 10-42 Int._Unit/L Normal 08-04-2017 [facility] (77528) Comment: Performed By: #### [id number] #### [facility] Microbiology Subsection [address] [place] [address]393 Bili Total 0.4 0.2-1.0 mg/dL Normal 08-04-2017 [facility] (64566) Comment: Performed By: #### [id number] #### [facility] Microbiology Subsection [address] [place] [address] Creatinine mass conc 0.7 0.6-1.3 mg/dL Normal 08-04-2017 [facility] (90694) Comment: Performed By: #### [id number] #### [facility] Microbiology Subsection [address] [place] [address] Globulin mass conc (S) 3.0 2.0-4.0 G/DL Normal 08-04-2017 [facility] (01683) Comment: Performed By: #### [id number] #### [facility] Microbiology Subsection [address] [place] [address] 89493 Protein mass conc 5.7 6.4-8.3 G/DL Low 08-04-2017 [facility] (72966) Comment: Performed By: #### [id number] #### [facility] Microbiology Subsection [address] [place] [address] Urea nitrogen mass conc 8 7-18 mg/dL Normal 08-04-2017 [facility] (49551) Comment: Performed By: #### [id number] #### [facility] Microbiology Subsection [address] [place], [place] [address] Urea nitrogen/Creatinine mass 11.4 5.4-30.0 ratio Normal 08-04-2017 [facility] (77932) Comment: Performed By: #### [id number] #### [facility] Microbiology Subsection [address] [place] [address] Calcium mass conc 7.5 8.4-10.2 mg/dL Low 08-04-2017 [facility] (01035) Comment: Performed By: #### [id number] #### [facility] Microbiology Subsection [address] [place] [address] Chloride molar conc 110 98-107 mEq/L High 08-04-2017 [facility] (93672) Comment: Performed By: #### [id number] #### [facility] Microbiology Subsection [address] [place] [address] CO2 molar conc 23.1 24.0-30.0 mEq/L Low 08-04-2017 [facility] (69077) Comment: Performed By: #### [id number] #### [facility] Microbiology Subsection [address] [place] [address] Glucose mass conc 104 70-99 mg/dL High 08-04-2017 [facility] (61534) Comment: Performed By: #### [id number] #### [facility] Microbiology Subsection [address] [place] [address] Potassium molar conc 3.9 3.5-5.1 mEq/L Normal 08-04-2017 [facility] (21925) Comment: Performed By: #### [id number] #### [facility] Microbiology Subsection [address] [place] [address] Sodium molar conc 138 136-145 mEq/L Normal 08-04-2017 [facility] (81838) Comment: Performed By: #### [id number] #### [facility] Microbiology Subsection [address] [place], [place] [address] fibrinogen on 2017-08-04 Fibrinogen 469 239-502 mg/L Normal 08-04-2017 [facility] (15454) Comment: Result Comment: New reference range established due to change in methodology. Performed By: #### [id number] #### [facility] RemHemo [address] [place], [place] [address] ptt on 2017-08-04 aPTT Coag time 29.0 23.2-36.4 second(s) Normal 08-04-2017 [facility] ([facility] (39254) Comment: Performed By: #### [id number] #### [facility] Microbiology Subsection [facility] [place] [address] ptt control ratio on 2017-08-04 PTT Ratio 1.0 0.8-1.2 ratio Normal 08-04-2017 [facility] (29075) Comment: Order Comment: Order added by Discern Expert. Performed By: #### [id number] #### [facility] Microbiology Subsection [facility] [place] [address] pt on 2017-08-04 INR Coag RelTime (PPP) 1.0 1.0-1.2 {INR} Normal 08-04-2017 [facility] ([id number]) Comment: Result Comment: INR Recommended Therapeuptic Ranges: Prophylaxis/treatment of DVT and PE?2.0-3.0 Prevention of systemic embolism?.2.0-3.0 Mechanical prosthetic values?2.5-3.5 CRITICAL VALUES?.>4.0 Performed By: #### [id number] #### [facility] Microbiology Subsection [facility] [place] [address] Prothrombin time (PT) 12.4 11.6-14.6 second(s) Normal 08-04-2017 [facility] Coag time (PPP) [facility] ([id number]) Comment: Performed By: #### [id number] #### [facility] Microbiology Subsection [address] [place] [address] auto diff on 2017-08-05 Basophils #/vol (d) 0.3 0.0-0.2 E3/mcL High 08-05-2017 [facility] ([id number]) Comment: Order Comment: Order Added by Discern Expert. Performed By: #### [id number] #### MIRTA RemHemo [address] [place] [address] Basophils/100 WBC (Bld) 2.3 0.0-2.0 % High 08-05-2017 [facility] ([id number]) Comment: Order Comment: Order Added by Discern Expert. Performed By: #### [id number] #### MIRTA Falcono [address] [place] [address] Eos Absolute 0.4 0.0-0.7 E3/mcL Normal 08-05-2017 [facility] ([id number]) Comment: Order Comment: Order Added by Discern Expert. Performed By: #### [id number] #### MIRTA YoungHemo [facility] [place] [address] Eosinophils/100 WBC (Bld) 3.8 0.0-11.0 % Normal 08-05-2017 [facility] ([id number]) Comment: Order Comment: Order Added by Discern Expert. Performed By: #### [id number] #### [address] [address] Lymphocytes #/vol (Bld) 1.7 1.2-3.4 E3/mcL Normal 08-05-2017 [facility] ([id number]) Comment: Order Comment: Order Added by Discern Expert. Performed By: #### [id number] #### MIRTA Falcono [address] [place] [address] Lymphocytes/100 WBC (Bld) 15.5 20.0-55.0 % Low 08-05-2017 [facility] ([id number]) Comment: Order Comment: Order Added by Discern Expert. Performed By: #### [id number] #### MIRTA YoungHemo [address] [place] [address] [place] Absolute 1.1 0.0-0.7 E3/mcL High 08-05-2017 [facility] ([id number]) Comment: Order Comment: Order Added by Discern Expert. Performed By: #### [id number] #### MIRTA YoungHemo [address] [place] [address] Monocytes/100 WBC (Bld) 10.1 0.0-10.0 % High 08-05-2017 [facility] ([id number]) Comment: Order Comment: Order Added by Discern Expert. Performed By: #### [id number] #### M[facility] RemHemo [address] [place] [address] Neutro Absolute 7.6 1.4-6.5 E3/mcL High 08-05-2017 [facility] ([id number]) Comment: Order Comment: Order Added by Discern Expert. Performed By: #### [id number] #### M[facility]TA RemHemo [address] [place] [address] Neutro Auto 68.3 37.0-75.0 % Normal 08-05-2017 [facility] ([id number]) Comment: Order Comment: Order Added by Discern Expert. Performed By: #### [id number] #### M[facility] RemHemo [address] [place] [address] egfr on 2017-08-04 GFR/1.73 sq M predicted >60 mL/min/{1.73_m2} Normal 08-04-2017 [facility] among non-blacks [facility] ([id number]) vol rate/area (S/P/Bld) Comment: Order Comment: Order added by Discern Expert. Performed By: #### [id number] #### M[facility]TA RemHemo [address] [place] [address] GFR/1.73 sq M predicted >60 mL/min/{1.73_m2} Normal 08-04-2017 [facility] among non-blacks [facility] ([id number]) vol rate/area (S/P/Bld) Comment: Order Comment: Order added by Discern Expert. Performed By: #### [id number] #### M[facility] RemHemo [address] [place] [address] GFR/1.73 sq M predicted >60 mL/min/{1.73_m2} Normal 08-04-2017 [facility] among non-blacks [facility] ([id number]) vol rate/area (S/P/Bld) Comment: Order Comment: Order added by Discern Expert. Performed By: #### [id number] #### [facility] Microbiology Subsection [address] [place] [address] GFR/1.73 sq M predicted >60 mL/min/{1.73_m2} Normal 08-04-2017 [facility] among non-blacks [facility] (75789) vol rate/area (S/P/Bld) Comment: Order Comment: Order added by Discern Expert. Performed By: #### [id number] #### [facility] Microbiology Subsection [address] [place] [address] ldh on 2017-08-04 LDH 172 91-180 Int._Unit/L Normal 08-04-2017 [facility] ([id number]) Comment: Performed By: #### [id number] #### M[facility]TA RemHemo [address] [place] [address] manual diff on 2017-08-04 Basophils/100 WBC (Bld) 0 0-1 % Normal 08-04-2017 [facility] ([id number]) Comment: Performed By: #### [id number] #### [facility] Microbiology Subsection [address] [place] [address] Eosinophils/100 WBC (Bld) 1 0-5 % Normal 08-04-2017 [facility] ([id number]) Comment: Performed By: #### [id number] #### [facility] Microbiology Subsection [address] [place] [address] Lymphocytes/100 WBC (Bld) 19 14-48 % Normal 08-04-2017 [facility] ([id number]) Comment: Performed By: #### [id number] #### [facility] Microbiology Subsection [address] [place] [address] Monocytes/100 WBC (Bld) 9 1-11 % Normal 08-04-2017 [facility] ([id number]) Comment: Performed By: #### [id number] #### [facility] Microbiology Subsection [address] [place] [address] Segs Man 71 37-75 % Normal 08-04-2017 [facility] ([id number]) Comment: Performed By: #### [id number] #### [facility] Microbiology Subsection [address] [place] [address] zzplt morph on 2017-08-04 Platelet morphology finding ENLARGED Normal 08-04-2017 [facility] ([id number]) Comment: Performed By: #### [id number] #### [facility] Microbiology Subsection [address] [place] [address] Platelets #/vol (Bld) NORMAL Normal 08-04-2017 [facility] ([id number]) Comment: Performed By: #### [id number] #### [facility] Microbiology Subsection [address] [place] [address] uric acid on 2017-08-04 Urate mass conc 4.7 2.6-7.2 mg/dL Normal 08-04-2017 [facility] ([id number]) Comment: Performed By: #### [id number] #### M[facility] RemHemo [address] [place] [address] magnesium on 2017-08-04 Magnesium mass conc 5.4 1.7-2.8 mg/dL Critically abnormal 08-04-2017 [facility] ([id number]) Comment: Order Comment: already collected, in lab Result Comment: Critical Result MG: Called to: AKHIL DINH at: 19:16:45 by:JOEY Read back by:AKHIL DINH Performed By: #### [id number] #### [facility] RemHemo [address] [place] [address] Magnesium mass conc 4.7 1.7-2.8 mg/dL High 08-04-2017 [facility] ([id number]) Comment: Performed By: #### [id number] #### [facility] Microbiology Subsection [address] [place] [address] pt on 2017-08-03 INR Coag RelTime (PPP) 1.1 1.0-1.2 {INR} Normal 08-03-2017 [facility] ([id number]) Comment: Result Comment: INR Recommended Therapeuptic Ranges: Prophylaxis/treatment of DVT and PE?2.0-3.0 Prevention of systemic embolism?.2.0-3.0 Mechanical prosthetic values?2.5-3.5 CRITICAL VALUES?.>4.0 Performed By: #### [id number] #### [facility] Hematology Automated Subsection [address] [place] [address] Prothrombin time (PT) 13.2 11.6-14.6 second(s) Normal 08-03-2017 [facility] Coag time (PPP) [facility] (62136) Comment: Performed By: #### [id number] #### [facility] Hematology Automated Subsection [address] [place] [address] egfr on 2017-08-03 GFR/1.73 sq M predicted >60 mL/min/{1.73_m2} Normal 08-03-2017 [facility] among non-blacks [facility] (30995) vol rate/area (S/P/Bld) Comment: Order Comment: For positive results only; Penicillin is the recommended antibiotic for the treatment of Group B Streptococcal disease. In case of penicillin allergy, Clindamycin may be used. All Negative GBS Screens by PCR will be confirmed by culture. Performed By: #### [id number] #### [facility] Microbiology Subsection [address] [place] [address] ldh on 2017-08-03 LDH 122 91-180 Int._Unit/L Normal 08-03-2017 [facility] ([id number]) Comment: Performed By: #### [id number] #### [facility] Microbiology Subsection [address] [place] [address] uric acid on 2017-08-03 Urate mass conc 5.5 2.6-7.2 mg/dL Normal 08-03-2017 [facility] (30754) Comment: Performed By: #### [id number] #### [facility] Microbiology Subsection [address] [place], [place] [id number] fibrinogen on 2017-08-03 Fibrinogen 426 239-502 mg/L Normal 08-03-2017 [facility] (33043) Comment: Result Comment: New reference range established due to change in methodology. Performed By: #### [id number] #### [facility] Microbiology Subsection [address] [place], [place] [id number] ptt on 2017-08-03 aPTT Coag time 28.6 23.2-36.4 second(s) Normal 08-03-2017 [facility] ([facility]) [facility] (06501) Comment: Performed By: #### [id number] #### [facility] Hematology Automated Subsection [address] [place] [address] ptt control ratio on 2017-08-03 PTT Ratio 1.0 0.8-1.2 ratio Normal 08-03-2017 [facility] (78350) Comment: Order Comment: Order added by Discern Expert. Performed By: #### [id number] #### [facility] Hematology Automated Subsection [address] [place] [address] zzplt morph on 2017-08-03 Platelet morphology finding ENLARGED Normal 08-03-2017 [facility] ([id number]) Comment: Performed By: #### [id number] #### [facility] RemHemo [address] [place] [address] Platelets #/vol (Bld) NORMAL Normal 08-03-2017 [facility] ([id number]) Comment: Performed By: #### [id number] #### [facility] RemHemo [address] [place] [address] morph on 2017-08-03 Anisocytosis Ql (Bld) 1+ Normal 08-03-2017 [facility] (81082) Comment: Order Comment: Order Added by Discern Expert. Performed By: #### [id number] #### M[facility] RemHemo [address] [place], [place] [address] RBC morphology finding SEE MORPHOLOGY Normal 08-03-2017 [facility] (45510) Comment: Order Comment: Order Added by Discern Expert. Performed By: #### [id number] #### [facility] RemHemo [address] [place] [address] auto diff on 2017-08-03 Basophils #/vol (Bld) 0.0 0.0-0.2 E3/mcL Normal 08-03-2017 [facility] (86314) Comment: Order Comment: For positive results only; Penicillin is the recommended antibiotic for the treatment of Group B Streptococcal disease. In case of penicillin allergy, Clindamycin may be used. All Negative GBS Screens by PCR will be confirmed by culture. Performed By: #### [id number] #### [facility] Microbiology Subsection [address] [place] [address] Basophils/100 WBC (Bld) 0.2 0.0-2.0 % Normal 08-03-2017 [facility] (44018) Comment: Order Comment: For positive results only; Penicillin is the recommended antibiotic for the treatment of Group B Streptococcal disease. In case of penicillin allergy, Clindamycin may be used. All Negative GBS Screens by PCR will be confirmed by culture. Performed By: #### [id number] #### [facility] Microbiology Subsection [address] [place] [address] Eos Absolute 0.0 0.0-0.7 E3/mcL Normal 08-03-2017 [facility] ([id number]) Comment: Order Comment: For positive results only; Penicillin is the recommended antibiotic for the treatment of Group B Streptococcal disease. In case of penicillin allergy, Clindamycin may be used. All Negative GBS Screens by PCR will be confirmed by culture. Performed By: #### [id number] #### [facility] Microbiology Subsection [address] [place] [address] Eosinophils/100 WBC (Bld) 0.1 0.0-11.0 % Normal 08-03-2017 [facility] (61015) Comment: Order Comment: For positive results only; Penicillin is the recommended antibiotic for the treatment of Group B Streptococcal disease. In case of penicillin allergy, Clindamycin may be used. All Negative GBS Screens by PCR will be confirmed by culture. Performed By: #### [id number] #### [facility] Microbiology Subsection [address] [place] [address] Lymphocytes #/vol (Bld) 1.6 1.2-3.4 E3/mcL Normal 08-03-2017 [facility] (26806) Comment: Order Comment: For positive results only; Penicillin is the recommended antibiotic for the treatment of Group B Streptococcal disease. In case of penicillin allergy, Clindamycin may be used. All Negative GBS Screens by PCR will be confirmed by culture. Performed By: #### [id number] #### [facility] Microbiology Subsection [address] [place] [address] Lymphocytes/100 WBC (Bld) 9.6 20.0-55.0 % Low 08-03-2017 [facility] (25804) Comment: Order Comment: For positive results only; Penicillin is the recommended antibiotic for the treatment of Group B Streptococcal disease. In case of penicillin allergy, Clindamycin may be used. All Negative GBS Screens by PCR will be confirmed by culture. Performed By: #### [id number] #### [facility] Microbiology Subsection [address] [place] [address] [place] Absolute 1.2 0.0-0.7 E3/mcL High 08-03-2017 [facility] ([id number]) Comment: Order Comment: For positive results only; Penicillin is the recommended antibiotic for the treatment of Group B Streptococcal disease. In case of penicillin allergy, Clindamycin may be used. All Negative GBS Screens by PCR will be confirmed by culture. Performed By: #### [id number] #### [facility] Microbiology Subsection [address] [place] [address] Monocytes/100 WBC (Bld) 7.7 0.0-10.0 % Normal 08-03-2017 [facility] ([id number]) Comment: Order Comment: For positive results only; Penicillin is the recommended antibiotic for the treatment of Group B Streptococcal disease. In case of penicillin allergy, Clindamycin may be used. All Negative GBS Screens by PCR will be confirmed by culture. Performed By: #### [id number] #### [facility] Microbiology Subsection [address] [place] [address] Neutro Absolute 13.3 1.4-6.5 E3/mcL High 08-03-2017 [facility] ([id number]) Comment: Order Comment: For positive results only; Penicillin is the recommended antibiotic for the treatment of Group B Streptococcal disease. In case of penicillin allergy, Clindamycin may be used. All Negative GBS Screens by PCR will be confirmed by culture. Performed By: #### [id number] #### [facility] Microbiology Subsection [address] [place] [address] Neutro Auto 82.4 37.0-75.0 % High 08-03-2017 [facility] ([id number]) Comment: Order Comment: For positive results only; Penicillin is the recommended antibiotic for the treatment of Group B Streptococcal disease. In case of penicillin allergy, Clindamycin may be used. All Negative GBS Screens by PCR will be confirmed by culture. Performed By: #### [id number] #### [facility] Microbiology Subsection [address] [place] [address] Basophils #/vol (Bld) 0.1 0.0-0.2 E3/mcL Normal 08-03-2017 [facility] (04560) Comment: Order Comment: Order Added by Discern Expert. Performed By: #### [id number] #### MIRTA Falcono [address] [place] [address] Basophils/100 WBC (Bld) 0.4 0.0-2.0 % Normal 08-03-2017 [facility] ([id number]) Comment: Order Comment: Order Added by Discern Expert. Performed By: #### [id number] #### MIRTA YoungHemo [address] [place] [address] Eos Absolute 0.2 0.0-0.7 E3/mcL Normal 08-03-2017 [facility] (21776) Comment: Order Comment: Order Added by Discern Expert. Performed By: #### [id number] #### [facility] [address] [place] [address] Eosinophils/100 WBC (Bld) 1.6 0.0-11.0 % Normal 08-03-2017 [facility] (41301) Comment: Order Comment: Order Added by Josué Expert. Performed By: #### [id number] #### MIRTA [address] [address] Lymphocytes #/vol (Bld) 2.6 1.2-3.4 E3/mcL Normal 08-03-2017 [facility] (21376) Comment: Order Comment: Order Added by Josué Expert. Performed By: #### [id number] #### MIRTA Young[address] [address] Lymphocytes/100 WBC (Bld) 19.3 20.0-55.0 % Low 08-03-2017 [facility] (53583) Comment: Order Comment: Order Added by Discern Expert. Performed By: #### [id number] #### MIRTA YoungHemo [address] [place] [address] [place] Absolute 1.3 0.0-0.7 E3/mcL High 08-03-2017 [facility] (85286) Comment: Order Comment: Order Added by Discern Expert. Performed By: #### [id number] #### [facility] [address] [place] [address] Monocytes/100 WBC (Bld) 10.1 0.0-10.0 % High 08-03-2017 [facility] (87743) Comment: Order Comment: Order Added by Discern Expert. Performed By: #### [id number] #### [facility]TA RemHemo [facility] [place] [id number] Neutro Absolute 9.1 1.4-6.5 E3/mcL High 08-03-2017 [facility] (46238) Comment: Order Comment: Order Added by Discern Expert. Performed By: #### [id number] #### M[facility]TA RemHemo [facility] [place] [id number] Neutro Auto 68.6 37.0-75.0 % Normal 08-03-2017 [facility] (91212) Comment: Order Comment: Order Added by Discern Expert. Performed By: #### [id number] #### MIRTA YoungHemo [address] [place], [place] [address] group b strep pcr on 2017-07-18 Group B Strep PCR Final Report: Normal 07-18-2017 [facility] Streptococcus Group B [facility] (80978) screen negative Comment: Order Comment: For positive results only; Penicillin is the recommended antibiotic for the treatment of Group B Streptococcal disease. In case of penicillin allergy, Clindamycin may be used. All Negative GBS Screens by PCR will be confirmed by culture. Performed By: #### [id number] #### [facility] Microbiology Subsection [address] [place] [address] c urine on 2017-07-17 C Urine Final Report: 2,000 cfu/ml Normal 07-17-2017 [facility] Yeast in Moderate Normal System ([id number]) skin amy isolated Comment: Performed By: #### [id number] #### [facility] Microbiology Subsection [address] [place] [address] c urine on 2017-06-20 C Urine Final Report: 300 cfu/ml Yeast Tara albicans in Normal 06-20-2017 [facility] Rare growth of Normal skin amy isolated System ([id number]) ORGANISM: Yeast Comment: Performed By: #### [id number] #### [facility] Microbiology Subsection [address] [place], [place] [id number] pathology ([facility]) on 2017-01-25 Pathology ([facility]) FINAL GYNECOLOGIC CYTOLOGY Normal 01-25-2017 [facility] Healthcare [id number] ([id number]) ADEQUACYSatisfactory for EvaluationClinical information indicates , therefore endocervical component isnot applicable.GENERAL CATEGORIZATIONEpithelial Cell AbnormalityDESCRIPTIVE DIAGNOSISLow grade squamous intraepithelial lesion.CLINICAL HISTORYComment: LMP: Pt is 11 Weeks SPECIMEN(A) SCREENING CERVICAL/ENDOCERVICAL LIQUID-BASED PAPPerformed at [facility], [address] [place] [id number] by: TORREY LORENZO, Director Of Admissions Signed Out by: KELLY DELACRUZ MD Reported: 01/29/2017 Comment: Performed By: #### CONCRETE PAVEMENT INSTALLER ####[facility] [address] [place] [id number] progress note on 2016-12-28 Rating Officer Patient ID: Rommel Gunn is a 21 Normal 12-28-2015 Hasty Authentication y.o. female. Her chief Children's Interface Message complaint(s) include: 21YEAR Hospital Text WELL CHILD.Assessment:1. (77070) Routine general medical examination at a health care facilityPlan:Rommel was seen today for 21 year well child.Diagnoses and all orders for this visit:Routine general medical examination at a health care facility- Behavioral/Emotional Assessment w Score - PHQ-9- passed- unable to do PPD or flu vaccine today as she is >18yo and has medicaid -recommended finding adult physician NEGRITA or go to Health department for vaccines- recommended following up with supervising appraiser and wearing her glasses- recommended twice a year dental visits and dental hygiene- follow up with OBGYN as previously instructedNo Follow-up on file. 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 Apple, has subchorionic hemorrhagewhich she is monitoring.Has had a cold for about 1 week but just nasal congestion and getting betterPreviously on her parents insurance - has had medicaid since jan 2016Has glasses but hasn't worn them - goes to [facility] with boyfriend - was not on any contraceptive, wanted to get She is unaccompanied. No foreign languages department chair was used.21 YEAR WELL CHILDHome:Rommel eats meals with family and has an adult to turn to for help.Education:She is doing well.Eating:Rommel eats regular meals including fruits and vegetables.Activities & Sports:She has friends and has a job. She performs less than 1 hour of physicalactivity daily.Drugs:She does not use tobacco, does not use drugs and does not use alcohol.Safety:She has peer relationships free from violence and uses seat belt. She does nothave a violence free home and does not use phone/text while driving.Sex:Rommel is sexually active. STD screening offered and completed.Rommel was 19 when she had her first sexual encounter.She has had >5 partners. Her sexual partners are males. She identifies asheterosexual. Rommel sometimes uses condoms. Typically, she uses none as hercurrent contraceptive method. She has previously been : yes (3 yo)She has not had an STD.Laboratory screenings have not included: chlamydia / gonorrhea.Suicidality:She has ways to cope with stress. She has no depression, has no anxiety, has nosuicidal ideation and has no homicidal ideation.MenstruationLast Menstrual Period: 1 month and 2 weeks ago.Last Menstrual period: LMP from [facility]'s last menstrual period was 11/16/2016 (approximate)..Menstruation: regular periodsOutputUrine and Stool Pattern:Urine and Stool Pattern: Normal stool pattern, normal urine pattern.SleepSleeping Difficulty: no difficulty sleepingHours of sleep at a time: 8Teen Anticipatory GuidanceThe following anticipatory guidance was reviewed during the visit:Nutrition: limit junk food/fast food and soft drinks.Safety: gun safety, home safety and date violence.Social: avoid or limit screen time.Health: age appropriate dental care, age appropriate sleep habits, avoidsituations where drugs and alcohol are present, don't use tobacco/ alcohol/drugs/ diet pills/ inhalants and driving risks.CRAFFT AssessmentHas not used alcohol or other drugs.Has not ridden in a CAR driven by someone (including self) who was high orhad been using alcohol or drugs.ScreeningsPrevious Vaccine Reactions: No.Tuberculosis Concerns:Negative Tuberculosis Screen Concerns: no TB Risk FactorsHearing Vision Concerns:Patient wears glasses or contact lenses.The caregiver has no concerns about the patient's hearing.The caregiver has no concerns about the patient's vision.Hyperlipidemia Concerns:Negative Hyperlipidemia Screen Concerns: no Hyperlipidemia Risk FactorsPrimary Care Review of SystemsObjective:Physical ExamConstitutional: Vital signs are normal. She appears well, well-developed andwell-nourished. She is active and cooperative. Non-toxic appearance. Nodistress.HENT:Head: Normocephalic and atraumatic.Right Ear: Tympanic membrane and external ear normal.Left Ear: Tympanic membrane and external ear normal.Nose: Congestion present. No mucosal edema, rhinorrhea or nasal discharge.Mouth/Throat: Mucous membranes are moist. Dentition is normal. Oropharynx isclear.Eyes: Conjunctivae and EOM are normal. No strabismus. Pupils are equal, round,and reactive to light.Neck: Normal range of motion. Neck supple. Thyroid normal. No neck adenopathy.Cardiovascular: Normal rate, regular rhythm, S1 normal and S2 normal. Pulsesare palpable.No murmur heard.Pulmonary/Chest: Effort normal and breath sounds normal. There is normal airentry. No respiratory distress. Exhibits no deformity.Abdominal: Soft. Bowel sounds are normal. She exhibits no distension and nomass. There is no hepatosplenomegaly. There is no tenderness. There is norigidity, no rebound and no guarding.Musculoskeletal: Normal range of motion. Back: She exhibits no scoliosis.Neurological: She is alert. She has normal strength. She exhibits normal muscletone. Gait normal.Skin: Capillary refill takes less than 3 seconds. No rash noted. No pallor. Skinis warm.Vitals reviewed: Blood pressure 104/71, pulse 80, temperature 36.7 C (98.1 F),temperature source Temporal, height 173 cm, weight 60.1 kg, last menstrualperiod 11/16/2016. Encounters Date Type Reason Provider Location 01-05-2017 Ambulatory [facility] ([id number]) 12-28-2016 Ambulatory [facility] ([id number]) Nitesh MILLER 02-26-2016 - Ambulatory [facility] 02-26-2016 06-13-2018 - Emergency department Nodr No Doctor Facility:[facility] 06-14-2018 [facility] 08-03-2017 - Evaluation and Andie Zechariah Andie Facility:[facility] 08-06-2017 management of Zechariah Nodr No [facility] inpatient Assigned 06-13-2018 Patient encounter Facility:[id number] procedure 03-21-2018 - Patient encounter Andie Zechariah Nodr No Facility:[facility] 03-22-2018 procedure Doctor Assigned [facility] 08-31-2017 - Patient encounter Andie Zechariah Nodr No Facility:[facility] 08-31-2017 procedure Doctor Assigned [facility] 08-10-2017 - Patient encounter Andie Zechariah Nodr No Facility:[facility] 08-11-2017 procedure Doctor Assigned [facility] 08-03-2017 Patient encounter Facility:[facility] procedure 07-30-2017 - Patient encounter Andei Zechariah Nodr No Facility:[facility] 07-30-2017 procedure Doctor Assigned [facility] 07-29-2017 Patient encounter Augustine A George Augustine Facility:[facility] procedure A George Nodr No [facility] Doctor Assigned 07-29-2017 Patient encounter Facility:950 procedure 07-27-2017 - Patient encounter Andie Zechariah Nodr No Facility:[facility] 07-28-2017 procedure Doctor Assigned [facility] 07-21-2017 - Patient encounter Andie Zechariah Nodr No Facility:[facility] 07-21-2017 procedure Doctor Assigned [facility] 07-20-2017 - Patient encounter Andie Zechariah Nodr No Facility:[facility] 07-21-2017 procedure Doctor Assigned [facility] Andie Zechariah 07-15-2017 - Patient encounter Andie Zechariah Nodr No Facility:[facility] 07-16-2017 procedure Doctor Assigned [facility] Andie Zechariah 07-15-2017 - Patient encounter Andie Zechariah Nodr No Facility:[facility] 07-16-2017 procedure Doctor Assigned [facility] 07-08-2017 - Patient encounter Augustine A Emmet Augustine Facility:[facility] 07-08-2017 procedure A Emmet Nodr No [facility] Doctor Assigned 07-05-2017 - Patient encounter Augustine A George Augustine Facility:[facility] 07-05-2017 procedure A Emmet Nodr No [facility] Doctor Assigned 07-02-2017 - Patient encounter Andie Zechariah Nodr No Facility:[facility] 07-02-2017 procedure Doctor Assigned [facility] Augustine A Emmet 07-01-2017 - Patient encounter Andie Zechariah Andie Facility:[facility] 07-02-2017 procedure Zechariah Andie Zechariah [facility] 06-25-2017 - Patient encounter Andie Zechariah Andie Facility:[facility] 06-25-2017 procedure [facility] 06-17-2017 - Patient encounter [facility] Facility:[facility] 06-18-2017 procedure [facility] 06-17-2017 - Patient encounter [facility] Facility:[facility] 06-18-2017 procedure Zechariah [facility] Immunizations Vaccine Notes Status Date Location DTAP DTaP (completed) 09-23-2001 [facility] ([id number]) DTAP DTaP (completed) 09-11-1998 [facility] (90643) DTAP DTaP (completed) 04-17-1997 [facility] (09259) DTAP DTaP (completed) 01-23-1997 [facility] (48853) DTAP DTaP (completed) 1996 [facility] (49367) HIB haemophilus influenzae (completed) 09-11-1998 [facility] (20081) type b vaccine, conjugate unspecified formulation HIB haemophilus influenzae (completed) 04-17-1997 [facility] (61287) type b vaccine, conjugate unspecified formulation HIB haemophilus influenzae (completed) 01-23-1997 [facility] (67303) type b vaccine, conjugate unspecified formulation HIB haemophilus influenzae (completed) 1996 [facility] (09706) type b vaccine, conjugate unspecified formulation HEPATITIS B hepatitis B vaccine, (completed) 09-24-1997 [facility] (56520) pediatric or pediatric/adolescent dosage HEPATITIS B hepatitis B vaccine, (completed) 1996 [facility] (20626) pediatric or pediatric/adolescent dosage HEPATITIS B hepatitis B vaccine, (completed) 1996 [facility] (46526) pediatric or pediatric/adolescent dosage HPV QUADRIVALENT human papilloma virus (completed) 08-14-2009 [facility] (03670) (GARDASIL) vaccine, quadrivalent MMR measles, mumps and (completed) 09-23-2001 [facility] (53702) rubella virus vaccine MMR measles, mumps and (completed) 09-24-1997 [facility] (26402) rubella virus vaccine MENINGOCOCCAL meningococcal (completed) 06-26-2008 [facility] (70348) CONJUGATE (MENACTRA) polysaccharide (groups A, C, Y and W-135) diphtheria toxoid conjugate vaccine (MCV4P) IPV poliovirus vaccine, (completed) 09-23-2001 [facility] (50092) inactivated IPV poliovirus vaccine, (completed) 09-11-1998 [facility] (02183) inactivated IPV poliovirus vaccine, (completed) 01-23-1997 [facility] (73461) inactivated IPV poliovirus vaccine, (completed) 1996 [facility] (18626) inactivated TDAP tetanus toxoid, (completed) 06-26-2008 [facility] (64236) reduced diphtheria toxoid, and acellular pertussis vaccine, adsorbed Payers Payer Name Policy Number Location [employer] MEDICAID [id number] [facility] (30262) [facility] (13693) [place] [id number] [facility] (21142) [id number] [facility] (19731) [id number] [facility] (46451) [id number] [facility] (21144) [phone] [facility] (96987) [id number] [facility] (15197) [id number] [facility] (14027) [id number] [facility] (21523) [id number] [facility] (24497) [id number] [facility] (82437) [id number] [facility] (62047) [id number] [facility] (03106) [id number] [facility] (92411) [id number] [facility] (51131) [id number] [facility] (46021) [id number] [facility] (92326) [id number] [facility] (29137) [id number] [facility] (51792) [id number] [facility] (67602) [id number] [facility] (87828) [id number] [facility] (00646) [id number] [facility] (35378) [id number] [facility] (89265) [id number] [facility] (95542) [id number] [facility] (58507) The following information is from the original human readable content ENCOUNTER GUARANTOR PAYER SUBSCRIBER SOURCE 01/05/2017 ROMMEL DIALLO: Primary ROMMEL GUNNB: [facility] Insurance:[facility] [id number] [place] [address] Number: [place] [address] [id number] Date:2016-12-295217-28-98WE [address] [place] [phone]: ENCOUNTER GUARANTOR PAYER SUBSCRIBER SOURCE 12/28/2016 ROMMEL OWENSB: Primary Insurance:[place] ROMMEL OWENSB: [facility] MEDICAIDPolicy Number: [id number] [facility] [id number]ository [address] [place] [address] Date: [place], [place] [address]Ton: (567) [phone] (HP) ENCOUNTER GUARANTOR PAYER SUBSCRIBER SOURCE 06/13/2018 ROMMEL DIALLO: Primary ROMMEL OWENSB: [place] S Insurance:[facility] [id number] [facility] Number: [place], [place] [id number] [place] [id number]: (126) chaparro Date:Plan [phone]: (HP) Name:[facility] [phone] () [address] [place] [address] [id number]: 08/03/2017 ROMMEL OWENSB: Primary ROMMEL GRACIELAB: [place] S Insurance:[facility] [id number] [facility] rcePolicy Number: [place], [place] [id number] [place] [id number]: (305) chaparro Date:Plan [id number]: (HP) Name:[facility] [phone] () [address] [place] [address] [id number]: 07/29/2017 ROMMEL DIALLO: Primary ROMMEL GRACIELAB: [place] S Insurance:[facility] [id number] [facility] rcePolicy Number: INGRAM Repository [place] [id number] [place] [id number]: (222) chaparro Date:Plan [id number]: (HP) Name:Health[facility] O [phone] (HP) [address] [place] [address] [phone]: ENCOUNTER GUARANTOR PAYER SUBSCRIBER SOURCE 06/13/2018 ROMMEL DIALLO: Primary ROMMEL OWENSB: [facility] S Insurance:[facility] [id number] [facility] MCAIDPolicy Number: [facility] [place] [address]Rtw: Date:2018-06-13 [address]Hcn: [id number] (HP) Name:CD:[id number] (HP)Tel: (000) [address] [place] [address] 000-0000 (WP) [id number]: 03/21/2018 ROMMEL DIALLO: Primary ROMMEL OWENSB: [facility] S Insurance:[facility] [id number] [facility] Repository [place] [address]Joc: Number: Effective [address]Liu: Date:2018-03-21 (HP) [id number] (HP)Tel: (000) Name:CD:[id number] O 000-0000 (WP) [address] [place] [phone]: 03/21/2018 ROMMEL DIALLO: Primary ROMMEL OWENSB: [facility] S Insurance:[id number] [facility] Repository [place] [address]Icp: Number: Effective [address]Fvh: Date:2018-03-17 (HP) [id number] (HP)Tel: (000) Name:CD:[id number] O 000-0000 (WP) [address] [place] [phone]: 08/30/2017 ROMMEL OWENSB: Primary ROMMEL N LUIS ADOB: [facility] S Insurance:[id number] [address] [facility] Repository [place] [address]Gem: Number: Effective [address]Emb: Date:2017-08-10 (HP) [id number] (HP)Tel: (000) Name:CD:[id number] O 000-0000 (WP) [address] [place] [phone]: 08/10/2017 ROMMEL OWENSB: Primary ROMMEL N BECKDOB: [facility] S Insurance:[id number] [facility] Repository [place] [address]Ztx: Number: Effective [address]Irm: Date:2017-08-10 (HP) [id number] (HP)Tel: (000) Name:CD:[id number] O 000-0000 (WP) [address] [place] [phone]: 08/03/2017 ROMMEL OWENSB: Primary ROMMEL N BECKDOB: [facility] S Insurance:[facility] [id number] S [facility] INGRAM MCAIDPolicy Number: INGRAM Repository [place] [address]Moj: Date:2017-08-03Tel: [id number] (HP) Name:CD:[id number] (HP)Tel: (000) [address] [place] [address] 000-0000 (WP) [id number]: 07/29/2017 ROMMEL OWENSB: Primary ROMMEL N BECKDOB: [facility] S Insurance:[facility] [id number] [facility] Repository [place] [facility] [place] [address]Htg: Number: Effective [address]Wsa: Date:2017-07-20 (HP) [id number] (HP)Tel: (000) Name:CD:[id number] O 000-0000 (WP) [address] [place] [phone]: 07/29/2017 ROMMEL Emilia GRACIELAB: Primary ROMMEL N BECKDOB: [facility] S Insurance:[facility] [id number] S Health System INGRAM MCAIDPolic Number: INGRAM Repository [place] [address]Wcu: Date:2017-07-29 [address]Rbf: [id number] (HP) Name:CD:[id number] (HP)Tel: (000) [address] [place] [address] 000-0000 (WP) [id number]: 07/27/2017 ROMMEL OWENSB: Primary ROMMEL N LUIS AB: [facility] S Insurance:[id number] [facility] Repository [place] [address]Ogp: Number: Effective [address]Yts: Date:2017-07-27 (HP) [id number] (HP)Tel: (000) Name:CD:[id number] O 000-0000 (WP) [address] [address]WR: 07/20/2017 ROMMEL OWENSB: Primary ROMMEL N LUIS AB: [facility] S Insurance:[id number] [facility] Repository [place] [address]Lwi: Number: Effective [address]Mlq: Date:2017-07-15 (HP) 2925-90-97Oeqk (HP)Tel: (000) Name:CD:[id number] O 000-0000 (WP) [address] [place] [address]QN: 07/20/2017 ROMMEL OWENSB: Primary ROMMEL N BECKDOB: [facility] S Insurance:[id number] [facility] Repository [place] [address]Tju: Number: Effective [address]Ydy: Date:2017-07-20 - (HP) [id number] (HP)Tel: (606) Name:CD:[id number] O 000-0000 (WP) [address] [place] [phone]: 07/15/2017 ROMMEL Emilia GRACIELAB: Primary ROMMEL N BECKDOB: [facility] S Insurance:[facility] [id number] Health System INGRAM MCAIDPolicy Number: INGRAM Repository [place] [address]Fba: Date:2017-07-15 [address]Qxb: [id number] (HP) Name:CD:[id number] ()Tel: (000) [address] [place] [address] 000-0000 (WP) [id number]: 07/15/2017 ROMMEL OWENSB: Primary ROMMEL N BECKDOB: [facility] S Insurance:[facility] [id number] [facility] [place] [facility] [place] [address]Alv: Number: Effective [address]Vqg: Date:2017-07-01 (HP) [id number] (HP)Tel: (000) Name:CD:[id number] O 000-0000 (WP) [address] [place] [address]MN: 07/08/2017 ROMMEL OWENSB: Primary ROMMEL N BECKDOB: [facility] S Insurance:[facility] [id number] Health System [facility] Number: INGRAM Repository [place] [address]Mux: Date:2017-07-08 [address]Eoq: [id number] (HP) Name:CD:[id number] (HP)Tel: (000) [address] [place] [address] 000-0000 (WP) [id number]: 07/05/2017 ROMMEL Emilia GUNNB: Primary ROMMEL N BECKDOB: [facility] S Insurance:[facility] [id number] [facility] Number: INGRAM Repository [place] [address]Ozn: Date:2017-07-05 [address]Mys: [id number] (HP) Name:CD:[id number] (HP)Tel: (000) [address] [place] [address] 000-0000 (WP) [id number]: 07/01/2017 ROMMEL OWENSB: Primary ROMMEL N BECKDOB: [facility] S Insurance:[id number] S [facility] Repository [place] [address]Hgu: Number: Effective [address]Jsg: Date:2017-06-17 (HP) [id number] (HP)Tel: (000) Name:CD:[id number] O 000-0000 (WP) [address] [place] [address]ZW: 07/01/2017 ROMMEL OWENSB: Primary ROMMEL N BECKDOB: [facility] S Insurance:[id number] [facility] Repository [place] [address]Pec: Number: Effective [address]Edu: Date:2017-07-01 (HP) [id number] (HP)Tel: (000) Name:CD:[id number] O 000-0000 (WP) [address] [place] [address]OQ: 06/25/2017 ROMMEL OWENSB: Primary ROMMEL N BECKDOB: [facility] S Insurance:[facility] [id number] [facility] INGRAM MCAIDPolicy Number: [facility] [place] [address]Kji: Date:2017-06-25 [address]Arl: [id number] (HP) Name:CD:[id number] (HP)Tel: (000) [address] [place] [address] 000-0000 (WP) [id number]: 06/17/2017 ROMMEL OWENSB: Primary ROMMEL N BECKDOB: [facility] S Insurance:[facility] [id number] [place], [place] [address] Number: [facility] [place] [address]Bre: Date:2017-06-17 [address]Ymh: [id number] (HP) Name:CD:[id number] (HP)Tel: (000) [address] [place] [address] 000-0000 (WP) [id number]: 06/17/2017 ROMMEL OWENSB: Primary ROMMEL N BECKDOB: [facility] S Insurance:[facility] [id number] [facility] [place] [facility] [place] [address]Uec: Number: Effective [address]Kyo: Date:2017-06-03 () [id number] ()Tel: (764) Name:CD:[id number] O 000-0000 (WP) [address] [place] [address]YV: Social History Type Social History Description Date Location Tobacco smoking status NHIS Unknown if ever smoked 05-20-2017 [facility] (24040) Sex Assigned At Not on file [facility] (87306) The following information is from the original human readable content Tobacco Use Types Packs/Day Years Used Date Never Assessed Sex Assigned at Date Recorded Not on file No Social History Records Found Summary Purpose DATE CREATED AUTHOR AUTHOR'S ORGANIZATION 08/24/2017 [facility] DATE CREATED AUTHOR AUTHOR'S ORGANIZATION 08/24/2017 [facility] DATE CREATED AUTHOR AUTHOR'S ORGANIZATION 08/24/2017 [facility] DATE CREATED AUTHOR AUTHOR'S ORGANIZATION 06/15/2018 [facility] DATE CREATED AUTHOR AUTHOR'S ORGANIZATION 06/15/2018 [facility] Family History No Family History Records Found Advance Directives No Advanced Directives Records Found Additional Source Comments FOR RECORDS PERTAINING TO PATIENTS WHO ARE OR HAVE BEEN ENROLLED IN A CHEMICAL DEPENDENCY/SUBSTANCE ABUSE PROGRAM, SOME INFORMATION MAY BE OMITTED. This clinical summary was aggregated from multiple sources. Caution should be exercised in using it in the provision of clinical care. This summary normalizes information from multiple sources, and as a consequence, information in this document may materially changethe coding, format and clinical context of patient data. In addition, data may be omittedin some cases. CLINICAL DECISIONS SHOULD BE BASED ON THE PRIMARY CLINICAL RECORDS. [facility] provides no warranty or guarantee of the accuracy or completeness of information in this document. UNRECOGNIZED CONTENT PROVIDED BELOW FOR UNRECOGNIZED SECTION INFORMATION SOURCE DATE CREATED AUTHOR AUTHOR'S ORGANIZATION 06/15/2018 [facility] DATE CREATED AUTHOR AUTHOR'S ORGANIZATION 06/15/2018 [facility] DATE CREATED AUTHOR AUTHOR'S ORGANIZATION 08/24/2017 [facility] DATE CREATED AUTHOR AUTHOR'S ORGANIZATION 08/24/2017 [facility] DATE CREATED AUTHOR AUTHOR'S ORGANIZATION 08/24/2017 [facility]
== END 2018-07-06 12:53 | disposition home or self-care (01) ==
PROVIDERS: Emergency Provider Emergency Medicine
DX: O99.351 Diseases of the nervous system complicating pregnancy, first trimester (principal); G43.909 Migraine, unspecified, not intractable, without status migrainosus; Z3A.00 Weeks of gestation of pregnancy not specified
CPT/HCPCS: 80048; 84702; 85025; 96374; 96375; 99285; J7040; A4216; J2405

== ENCOUNTER 2019-10-19 20:15 | Outpatient (CLI) | payer MEDICAID, SELFPAY ==
[2019-10-19 20:26] VITALS: BP 117/79; PULSE 82; PULSE 97; TEMP 37.5; O2SAT 97; O2SAT 98
[2019-10-19 20:29] VITALS: BP 117/79; PULSE 77
[2019-10-19 20:31] VITALS: PULSE 78; O2SAT 99
[2019-10-19 20:51] VITALS: BMI 25.2
[2019-10-19 21:37] LABS: ROM Internal Control Test YES-OK TO RESULT pt. (Internal QC); ROM Patient Test Negative (Negative)
--- NOTE | 2019-10-25 07:10 | OB.TRI.NOTE ---
History of Present Illness Reason For Visit: R/O LABOR Date of Service: 10/19/19 Final CYNTHIA: 11/19/19 Gestational age: 36 Weeks and 3 Days Allergies morphine Adverse Reaction (Verified 10/23/19 11:06) Other Christiane SPANGLER OUT - Pertinent Past Medical History Medical History: Past Medical History (This Medical Record has been edited. Action required.) Frequent headaches Gestational hypertension HTN (hypertension) Surgical History: Past Surgical History (This Medical Record has been edited. Action required.) History of appendectomy Laboratory Studies: Laboratory Tests 10/19/19 Range/Units 21:00 Vag Amniotic Fld Detect Negative (Negative) Physical Exam Vitals: Vital Signs Temp Pulse BP Pulse Ox 99.5 F H 78 117/79 99 10/19/19 20:26 10/19/19 20:31 10/19/19 20:29 10/19/19 20:31 NST - FHR Rate Baby A Baseline: 145 Variability:: Moderate Accelerations:: 15 x 15 Decelerations:: Variable Uterine Activity:: quiet Impression/Plan Reactive NST for threatened PTL
== END 2019-10-19 21:50 | disposition home or self-care (01) ==
LOC: WPOUT 20:19 → WP 20:20
PROVIDERS: PCP Family Medicine; Visit Provider Obstetrics & Gynecology
DX: O47.03 False labor before 37 completed weeks of gestation, third trimester (principal); Z3A.36 36 weeks gestation of pregnancy; O16.3 Unspecified maternal hypertension, third trimester
CPT/HCPCS: 59025; 59050; 84112; 99218; G0378

== ENCOUNTER 2021-06-14 07:56 | Inpatient (IN) | payer MEDICAID, SELFPAY ==
[2021-06-14] VITALS (87 sets, daily range): BP systolic 99–143; BP diastolic 55–93; PULSE 69–110; RESP 16; TEMP 35.9–36.6; O2SAT 84–100; BMI 24.7
[2021-06-14] MEDS: Ringers, Lactated 1,000 ML IV.SOLN. 1000 ML IV (07:45)
[2021-06-14 08:02] LABS: Absolute Lymphocyte Count 1.99 X10^3/uL (0.83-4.51); Absolute Neutrophil Count 9.5 X10^3/uL (2.0-7.7); Basophil# 0.04 X10^3/uL; Basophil% 0.3 % (0-1); Eosinophil# 0.17 X10^3/uL; Eosinophils% 1.3 % (0-5); Hematocrit 34.1 % (37-47); Hemoglobin 10.7 g/dL (12.0-15.0); Lymphocyte # 1.99 X10^3/ul (0.83-4.51); Lymphocyte % 15.2 % (19-41); Mean Corp Hgb Conc 31.4 g/dL (32-36); Mean Corpuscular Hgb 25.4 pg (27.0-32.0); Mean Corpuscular Volume 80.8 fL (81-99); Mean Platelet Vol. 12.3 fl (6.2-12.0); Monocyte# 1.23 X10^3/uL; Monocyte% 9.4 % (0-10); NRBC Flagged by Analyzer 0 % (0-5); Neutrophil # 9.51 X10^3/uL (2.7-7.7); Neutrophil % 72.9 % (47-70); Platelet Count 248 K/mm3 (150-450); RBC Distribution Width CV 14.3 % (11.6-14.6); RBC Distribution Width SD 41.7 fl (35.1-43.9); Red Blood Count 4.22 M/mm3 (4.2-5.4); White Blood Count 13.1 K/mm3 (4.4-11.0)
[2021-06-14 08:18] LABS: Fibrinogen 393 mg/dl (203-444)
[2021-06-14] MEDS: Lactated Ringers 1,000 ML 200 ML IV ×2 (08:39→13:23)
[2021-06-14 08:59] LABS: Amphetamine Urine VISTA NEGATIVE (<1000 ng/mL); Barbiturate Urine VISTA NEGATIVE (< 200 ng/mL); Benzodiazepine Urine VISTA NEGATIVE (< 200 ng/mL); Cocaine Urine VISTA NEGATIVE (< 300 ng/mL); Ecstacy Urine VISTA NEGATIVE (< 500 ng/mL); Methadone Urine VISTA NEGATIVE (< 300 ng/mL); PCP Urine VISTA NEGATIVE (< 25 ng/mL); THC Urine VISTA NEGATIVE (< 50 ng/mL); Vista UDS pH Range 7
[2021-06-14] MEDS: fentaNYL-bupivacaine (epidural) 100 ML BAG EPIDURAL (09:16)
[2021-06-14] MEDS: Ondansetron 4 MG/2 ML Vial IV (09:53)
--- NOTE | 2021-06-14 10:11 | HP.PCM.OB_ITS ---
HPI - General General Date of Admission: 06/14/21 HPI Narrative ROMMEL GUNN, is a 25 F who presents IAL. she has been receiving care from a [facility] provider in [place] and has had an uncomplicated . [facility] Medical History (Updated 06/14/21 @ 10:[address] Nini Jules MD) Frequent headaches Gestational hypertension History of pre-term labor HTN (hypertension) Home Medications Prenatabs FA 1 tab PO DAILY 10/19/19 [History Last Taken 06/13/21 10:00] ferrous sulfate 1 tab PO DAILY 10/19/19 [History Last Taken 06/13/21 19:00] Allergy/AdvReac Type Severity Reaction Status Date / Time morphine AdvReac Other Verified 06/14/21 07:00 Surgical History (Updated 06/14/21 @ 10:[address] Nini Jules MD) History of appendectomy S/P tonsillectomy Social History (System 10/23/19 @ 11:06 by Jairo Duong) Smoking Status: Never smoker alcohol intake: never History 5 Elective abortions Hx Para 4 Spontaneous abortions Hx # Term Pregnancies 3 Ectopic pregnancies Hx # Pregnancies 1 Multiple births # of living children 4 Addt'l History: 3 previous term vaginal deliveries 1 delivery vaginal. History of gestational hypertension otherwise uncomplicated history. NST FHR Rate Baby A Baseline: 140 Variability:: Moderate Accelerations:: 15 x 15 Decelerations:: None NST Reactive:: Yes FHR Category:: Category I Uterine Activity:: q3-5 ROS Constitutional Constitutional: Reports systems reviewed and no addt'l complaints, except as documented ENT HEENT: Reports systems reviewed and no addt'l complaints, except as documented Cardiovascular Cardiovascular: Reports systems reviewed and no addt'l complaints, except as documented Respiratory/Chest Respiratory/Chest: Reports systems reviewed and no addt'l complaints, except as documented Gastrointestinal Gastrointestinal: Reports systems reviewed and no addt'l complaints, except as documented and nausea; Denies abdominal pain Genitourinary Genitourinary: Reports systems reviewed and no addt'l complaints, except as documented, contractions Details: present and frequency (regular ) and movement Details: present Musculoskeletal Musculoskeletal: Reports systems reviewed and no addt'l complaints, except as documented Integumentary Integumentary: Reports as per HPI Neurologic Neurologic: Reports systems reviewed and no addt'l complaints, except as documented Endocrine Endocrinology: Reports systems reviewed and no addt'l complaints, except as documented Vital Signs Vital Signs Vital Signs: 06/14/21 06:54 06/14/21 07:17 06/14/21 07:22 Temperature 97.0 F L Temperature Source Temporal Pulse Rate 102 H 107 H 105 H Blood Pressure 140/93 H BP Systolic 140 BP Diastolic 93 Pulse Ox 100 100 92 06/14/21 07:23 06/14/21 07:28 06/14/21 07:31 Temperature Temperature Source Pulse Rate 90 100 107 H Blood Pressure BP Systolic BP Diastolic Pulse Ox 100 100 90 06/14/21 07:33 06/14/21 07:38 06/14/21 07:43 Temperature Temperature Source Pulse Rate 105 H 96 110 H Blood Pressure BP Systolic BP Diastolic Pulse Ox 100 99 100 06/14/21 07:52 06/14/21 08:15 06/14/21 08:20 Temperature Temperature Source Oral Pulse Rate 93 95 Blood Pressure BP Systolic BP Diastolic Pulse Ox 100 100 06/14/21 08:21 06/14/21 08:25 06/14/21 08:29 Temperature 97.7 F L Temperature Source Temporal Pulse Rate 97 93 Blood Pressure BP Systolic BP Diastolic Pulse Ox 88 100 06/14/21 08:30 06/14/21 08:35 06/14/21 08:40 Temperature Temperature Source Pulse Rate 92 91 99 Blood Pressure 112/74 124/90 H 143/81 H BP Systolic 112 124 143 BP Diastolic 74 90 81 Pulse Ox 99 100 100 06/14/21 08:45 06/14/21 08:50 06/14/21 08:55 Temperature Temperature Source Pulse Rate 98 92 91 Blood Pressure 138/91 H 116/92 H 122/89 H BP Systolic 138 116 122 BP Diastolic 91 92 89 Pulse Ox 100 100 100 06/14/21 08:59 06/14/21 09:00 06/14/21 09:03 Temperature 97.7 F L Temperature Source Temporal Pulse Rate 86 84 82 Blood Pressure 119/86 H BP Systolic 119 BP Diastolic 86 Pulse Ox 100 100 06/14/21 09:04 06/14/21 09:05 06/14/21 09:11 Temperature Temperature Source Pulse Rate 89 95 86 Blood Pressure 118/85 H 114/65 BP Systolic 118 114 BP Diastolic 85 65 Pulse Ox 100 06/14/21 09:14 06/14/21 09:16 06/14/21 09:19 Temperature Temperature Source Pulse Rate 91 83 81 Blood Pressure 107/55 L 105/60 BP Systolic 107 105 BP Diastolic 55 60 Pulse Ox 100 99 06/14/21 09:24 06/14/21 09:25 06/14/21 09:29 Temperature Temperature Source Pulse Rate 77 75 81 Blood Pressure 103/58 L 108/64 BP Systolic 103 108 BP Diastolic 58 64 Pulse Ox 99 99 06/14/21 09:34 06/14/21 09:39 06/14/21 09:40 Temperature Temperature Source Pulse Rate 83 89 Blood Pressure 117/72 BP Systolic 117 BP Diastolic 72 Pulse Ox 98 98 06/14/21 09:44 06/14/21 09:45 06/14/21 09:49 Temperature Temperature Source Pulse Rate 78 92 Blood Pressure 114/72 BP Systolic 114 BP Diastolic 72 Pulse Ox 98 98 06/14/21 09:54 06/14/21 09:55 06/14/21 09:59 Temperature Temperature Source Pulse Rate 86 90 Blood Pressure 122/76 H BP Systolic 122 BP Diastolic 76 Pulse Ox 99 98 Weight Weight: 163 lb Body Mass Index (BMI) 24.7 Physical Exam Const alert, oriented x3 and healthy appearing Constitutional Narrative: uncomfortable with contractions HEENT normocephalic and moist oral mucous membranes Head and Scalp: atraumatic Neck full ROM, no lymphadenopathy, supple and thyroid normal General: trachea midline Thyroid: thyroid normal Lymph Lymphatic: no lymphadenopathy noted Chest inspection of chest normal Resp normal respiratory effort Cardio regular rate GI normal to inspection, nondistended, normoactive bowel sounds, soft to palpation and non-tender Inspection: gravid external exam normal Bimanual Exam - Vag & Uterus: uterus non-tender Manual OB Exam: estimated gestational size appropriate, presentation cephalic, dilated, effaced and station Extremity normal to inspection General Extremity: Negative for edema Skin no rashes or lesions noted Neuro deep tendon reflexes 2+ bilaterally Motor Exam: strength 5/5 throughout and clonus absent Psych mental status grossly normal Labs Labs Labs: Blood Type O POSITIVE Antibody Screen NEGATIVE Hct 34.1 % (37-47) L Hgb 10.7 g/dL (12.0-15.0) L Obstetrics US Assessment & Plan (1) Active labor at term: COMMENT: Epidural and AROM clear fluid prepared for expectant management, Pitocin as needed
[2021-06-14] MEDS: Acetaminophen 500 MG Tablet PO (10:54)
[2021-06-14] MEDS: Amnioinfusion- 0.9% NS 1,000 ML IV.SOLN. 1000 ML INTRA-UTER (13:04)
[2021-06-14] MEDS: Oxytocin 30 units/NS 500 ml 30 UNITS/500 ML IV.SOLN 334 UNITS IV (13:46)
--- NOTE | 2021-06-14 14:16 | EX.PCM.OBRPT ---
Assessment & Plan (1) Active labor at term: COMMENT: Epidural and AROM clear fluid prepared for expectant management, Pitocin as needed (2) Vaginal delivery: COMMENT: SM IAL [facility] patient boy Leander Vaginal Delivery Operative Information Date of Procedure: 06/14/21 Pre-Operative Diagnosis: IAL Post-Operative Diagnosis: same Surgery / Procedure Performed: Spontaneous Vaginal Delivery Type of Anesthesia: Epidural Special Medications: none Estimated Blood Loss: 100 Fluids Replaced: crystalloid Findings Description of Procedure: Patient began pushing and delivered the head in the SUMEET presentation. The head was delivered atraumatically and a loose nuchal cord ?1 was identified and the delivered through without complication. The anterior and posterior shoulders delivered without complication followed by the rest of the and the was placed on the maternal abdomen. Delayed cord clamping was employed for approximately 60 seconds. Cord was clamped and cut and gentle traction was applied to the cord and the placenta delivered spontaneously immediately following it was noted to be intact with three-vessel cord. The perineum and vagina were inspected and noted to have no laceration. EBL was 100 cc. Patient and infant tolerated delivery well. Presentation: SUMEET Amniotic Membrane Rupture Type: Artificial Amniotic Fluid Description: Clear Placental Delivery Description: Spontaneous Placenta Disposition: [facility] Cord Vessel Description: 3 Vessels Cord Entanglement: Around neck x 1, loose Delayed Cord Clamping: Yes Post Vaginal Delivery Medications Given After Delivery: IV Pitocin Episiotomy Description: None Laceration: None Complication Complications: None Procedures Urinary/Genital [id number]: [id number] Vaginal Delivery Only
--- NOTE | 2021-06-14 14:18 | PCM.DC ---
Discharge Instructions Diet Discharge Diet: No restrictions Activity Discharge Activity: Return to Normal Activity, May Not Drive (while taking narcotic pain medications.) and May Shower May resume sexual activity in: 4-6 weeks Dressing / Incision Call your doctor if your incision/area has: Continuous Slow Oozing, Sudden Increased Bleeding, Increased Pain/ Swelling, Increased Redness and Foul Smelling Discharge Follow Up Care Please Follow Up With: Nini Jules MD When: Call [phone] to make an appointment with your doctor in 6 weeks. If you had elevated blood pressure or 4th degree laceration, you will need to be seen in 2 weeks. Test Results: Test results from this visit will be discussed in further detail at your follow-up appointment, if applicable. Discharge Plan Admission Admit Date/Time: 06/14/21 07:56 Attending Provider: Nini Jules Primary Care Provider: Irineo Kim Discharge Orders/Prescriptions Prescriptions: No Action ferrous sulfate 325 MG tablet 1 tab PO DAILY RF: 0 Prenatabs FA 1 tab PO DAILY RF: 0 Referrals / Follow Up: Irineo Kim MD [Primary Care Provider] - Disposition Disposition (needs filled in before D/C Order can be placed): Home, Self Care
[2021-06-14] MEDS: Naproxen 500 MG Tablet PO (17:18)
--- NOTE | 2021-06-14 18:36 | CM.ED ---
Addendum entered by Deisy Irvin 06/14/21 21:07: SW entered patient's PHQ 9 into chart. Patient reports a score of 1 (several days) on question 3 trouble falling or staying asleep or sleeping too much. Patient said that she has been uncomfortable recently due to the . Addendum entered by Deisy Irvin 06/14/21 20:17: SW made referral to [facility] On line. Deisy Albaro BARNETT Addendum entered by Deisy Irvin 06/14/21 19:54: Per farmer and grazier notes patient had asked for assistance with forgiveness of myself after her intentional OD in 2018 per notes. Deisy BARNETT Original Note: TOMEKA Note Referral Source: Insurance Account Executive Dr Chavarria Reason: History of Post Depression with Intentional OD in 2018 SW met with patient and FOB. Patient gave consent to speak to her in the presence of the fob. Patient was smiling. Patient would look at the nb and proudly give the nb name to this leader writer. FOB was holding the nb and both parents appeared to appropriately caring for the nb. Mom: Virgen PNC: [facility]. Patient was going to have baby at [place] however brought the children to her mother's house in [place] and was in labor so came to the hospital for the delivery. control: Undetermined NB born at 38 weeks Baby: Leander : 06/14/[birth year] Apgars: 8/9 Weight: 7# 6 ounces Insurance Account Executive: Dr. Marks Combination of breast and bottle. PENELOPE Hoffman noted that nb is latching well. MOB's other children: 1 year old girl, 2 year old girl, 3 year old boy and 7 year old boy. Patient's mother in [place] is watching the children. Housing: Patient resides in a house with the fob and their 5 children Transportation: Patient reports she has transportation Supplies: Patient reorts she has all the nb supplies. Patient said that all the nb supplies are at home in [place] as they were not planning to have a child today as she previously went to the hospital and got sent home. Patient said that she has lots of cute outfits for the nb and that she aid fob has to get carseat. Supports: Patient said that her mom in [place] in a support as well as the FOB. Education Level: Patient graduated high school and completed programming to be a stoner out Employment: Patient is not employed outside [facility] Agency Involvement: [employer], WIC, [employer] and previously [facility]. Patient reports no past or present CSB involvement and her children have never been in custody of CSB. Patient said that her youngest child had [facility] as she had issues walking. Patient was open to [facility] referral. Patient denied any legal issues. Patient reports no current counseling. However, patient voiced counseling after her psych hospitalization and also last year after the of her daughter. FOB: Aman [place] Together: 5 years Involved at : Yes Employment: [employer]. FOB will have 2 weeks off work FOB is father to the 1 year old, 2 year old and nb. FOB reports no history of AOD, MH or domestic violence. Patient reports that she feels that when she was hospitalized after an intentional overdose she was feeling overwhelmed. Patient said that she was going to school and taking her now 3 year old with her and had no support from her mother. Patient denied feeling suicidal (and this leader writer asked her 2x) stating I have way more support. Patient said that after the intentional overdose she went to [facility] and they didn't start me on meds but I went to classes. Patient said that the psych hospitalization was helpful. Patient said that after discharge she went to [facility] in [place] which was helpful. Patient said that she went weekly and then biweekly for 3 months. Patient reports she has had no SI/HI since the intentional overdose. Patient said that she was prescribed Zoloft by her PCP but it was not helpful. Patient said that last year she went to counseling with Abebe Santos at [facility] in [place] and it was supportive. Patient said that she can contact Abebe for counseling services if needed. Patient voiced no SI/HI upon admission to OB. SW also had patient completed the PHQ 9 scoring and patient scored a 1 which is mild depression. Patient voiced no SI on the PHQ score. SW asked if patient had post depression after the of her youngest 2 children and patient said that she did fine. Patient was educated on Post Depression, Shaken BAby and Safe Sleeping Patient denied any alcohol or drug use. SW spent time with patient and FOB. Patient was bright and reactive. Patient voices enjoyment at being a mom. Patient scored 1 on PHQ 9. Patient given PPD resource packet. SW also provided patient information on [facility] and advised that staff is always available in the ED if she is in crisis. Patient was open to referral to [facility]. Patient indicated that in the past she would stay in the hospital for a couple of days after the delivery and enjoyed being in the hospital after the . RN will speak to patient about her staying in the hospital for more than one day if she requests. SW updated MD Chavarria about this interaction. Plan is for discharge home. Stacey, staff was updated, about the plan for discharge home. Stacey said that patient is doing well with the nb. Plan: Home with nb Deisy BARNETT
[2021-06-14] MEDS: Acetaminophen 500 MG Tablet 1000 MG PO (23:13)
[2021-06-15] MEDS: Naproxen 500 MG Tablet PO (04:11)
[2021-06-15 04:12] VITALS: BP 111/69; PULSE 68; RESP 16; TEMP 36.2; TEMP 36.6
[2021-06-15 07:59] VITALS: BP 115/79; PULSE 72; TEMP 36.2; O2SAT 100
[2021-06-15 08:00] VITALS: BP 115/79; PULSE 73; RESP 18; TEMP 36.2; O2SAT 100
--- NOTE | 2021-06-15 10:51 | PCM.PN.OB ---
Subjective Subjective Patient doing well without complaints. Tolerating PO. Ambulating and voiding without difficulty. feeding well. Denies chest pain, shortness of breath, calf pain/swelling, fevers, chills, lightheadedness. Objective Data Objective Data Vital Signs: Vital Signs Temp Pulse Resp BP Pulse Ox 97.1 F L 73 18 115/79 100 06/15/21 08:00 06/15/21 08:00 06/15/21 08:00 06/15/21 08:00 06/15/21 08:00 Oxygen Delivery Method Room Air Weight: 163 lb Body Mass Index (BMI) 24.7 Intake & Output: Intake and Output for Last 24 Hours 06/13/21 06/14/21 06/15/21 23:59 23:59 23:59 Intake Total 1635.00 / 1635.00 Output Total 750 / 750 Balance 885.00 / 885.00 Lab / Micro Data Result Diagrams: 06/14/21 07:45 Micro: Microbiology 06/14/21 08:15 Nasal Secretion SARS-CoV-2 Antigen (Rapid) - Final ROS Constitutional Constitutional: Reports systems reviewed and no addt'l complaints, except as documented Cardiovascular Cardiovascular: Reports systems reviewed and no addt'l complaints, except as documented Respiratory/Chest Respiratory/Chest: Reports systems reviewed and no addt'l complaints, except as documented Gastrointestinal Gastrointestinal: Reports systems reviewed and no addt'l complaints, except as documented Physical Exam Const alert, oriented x3 and no apparent distress HEENT Head and Scalp: atraumatic Resp normal respiratory effort GI soft to palpation and non-tender Bimanual Exam - Vag & Uterus: uterus non-tender Uterus Palpation: uterus fundus firm (below Umbilicus) Assessment & Plan (1) Active labor at term: COMMENT: Epidural and AROM clear fluid prepared for expectant management, Pitocin as needed (2) Vaginal delivery: COMMENT: SM IAL [facility] patient boy Leander PLAN: s/p PPD # 1 1. routine post delivery care 2. breast feeding- support given 3. rh positive 4. rubella immune
[2021-06-15 11:34] VITALS: BP 113/72; PULSE 70
[2021-06-15 11:35] VITALS: BP 113/72; PULSE 72; RESP 18; TEMP 36.6; O2SAT 100
[2021-06-15] MEDS: Prenatal Vits Tablet 1 TABLET PO (11:38)
[2021-06-15] MEDS: Acetaminophen 500 MG Tablet 1000 MG PO (11:38)
[2021-06-15 14:50] VITALS: BP 118/79; PULSE 72; PULSE 99; RESP 18; TEMP 36.8; O2SAT 99
--- NOTE | 2021-06-15 15:03 | NURSING ---
Pt has follow up appointment with Frnacisco GUTIERREZ 06/16 at 1230pm.
== END 2021-06-15 15:15 | disposition home or self-care (01) | DRG 560 ==
LOC: WPOUT 08:06 → WP 14:06
PROVIDERS: Admitting Provider Obstetrics & Gynecology; PCP Family Medicine; Referring Provider Obstetrics & Gynecology; Visit Provider Obstetrics & Gynecology
DX: O69.81X0 Labor and delivery complicated by cord around neck, without compression, not applicable or unspecified (principal); Z37.0 Single live birth; O10.02 Pre-existing essential hypertension complicating childbirth; O26.23 Pregnancy care for patient with recurrent pregnancy loss, third trimester; Z3A.37 37 weeks gestation of pregnancy
CPT/HCPCS: 59025; 59050; 80307; 85025; 85384; 86850; 86900; 86901; 87426; 99218; J7030; J7120; G0378; J2405

== ENCOUNTER 2021-10-05 16:54 | Emergency (ER) | payer MEDICAID, SELFPAY ==
[2021-10-05 16:56] VITALS: BP 130/102; PULSE 95; RESP 16; TEMP 37.1; O2SAT 100; BMI 22.0
[2021-10-05 17:22] LABS: Absolute Lymphocyte Count 1.63 X10^3/uL (0.83-4.51); Absolute Neutrophil Count 4.8 X10^3/uL (2.0-7.7); Basophil# 0.04 X10^3/uL; Basophil% 0.5 % (0-1); Eosinophil# 0.16 X10^3/uL; Eosinophils% 2.1 % (0-5); Hematocrit 36.9 % (37-47); Hemoglobin 12.3 g/dL (12.0-15.0); Lymphocyte # 1.63 X10^3/ul (0.83-4.51); Lymphocyte % 21.8 % (19-41); Mean Corp Hgb Conc 33.3 g/dL (32-36); Mean Corpuscular Hgb 29.9 pg (27.0-32.0); Mean Corpuscular Volume 89.8 fL (81-99); Monocyte# 0.82 X10^3/uL; Monocyte% 10.9 % (0-10); NRBC Flagged by Analyzer 0 % (0-5); Neutrophil # 4.83 X10^3/uL (2.7-7.7); Neutrophil % 64.6 % (47-70); Platelet Count 239 K/mm3 (150-450); RBC Distribution Width CV 13.2 % (11.6-14.6); RBC Distribution Width SD 42.6 fl (35.1-43.9); Red Blood Count 4.11 M/mm3 (4.2-5.4); White Blood Count 7.5 K/mm3 (4.4-11.0)
--- NOTE | 2021-10-05 17:27 | US_ITS ---
STUDY: FIRST TRIMESTER OBSTETRICAL ULTRASOUND REASON FOR EXAM: Female, 26 years old bleeding LMP: 08/31/2021 TECHNIQUE: Transvaginal TECHNICAL QUALITY: Adequate. PRIOR ULTRASOUND: None. FINDINGS: There is no demonstrated intrauterine gestational sac. The uterus measures 9.5 x 5.6 x 2.5 cm. There is no demonstrated uterine fibroid. The cervix is closed. The endometrium is thickened measuring 21 mm thick. The right ovary measures 3.1 x 1.6 x 2.2 cm. There is no right ovarian cyst. There is no visualized right adnexal mass or complex lesion. The left ovary measures 2.7 x 1.6 x 1.4 cm. There is no left ovarian cyst. There is no visualized left adnexal mass or complex lesion. There is no fluid in the cul de sac. US/Transvaginal w/Preg US IMPRESSION: Thickened endometrium but no intrauterine gestational sac. Differential diagnosis includes an early intrauterine , early ectopic , or missed . Correlation with serial beta Hg measurements is recommended. Electronically Signed: Emmanuel Minor MD at 19:09 EDT ,
--- NOTE | 2021-10-05 17:27 | ED.VIS.FEGU ---
HPI HPI - Female History of Present Illness Chief Complaint: Vag Bld, Preg Narrative Narrative: 26-year-old female G6, currently at about 5 weeks presenting with pelvic pain which is mostly right-sided and midline. She states has had vaginal bleeding and has gone through 3 pads so far. She does note some leakage into her shorts. Denies any passage of tissue or clots. Denies any trauma to the abdomen. She states she started to feel little bit lightheaded. She was able to drive from a place in [place] to her mom's house here in [place] and drop of her children. Patient has not had a confirmatory intrauterine yet. She has not spoken to her OB in [place] since diagnosed with . Patient denies any other medical problems. Patient reports she is O+ blood type. [facility] Medical History Active labor at term Frequent headaches Gestational hypertension History of pre-term labor HTN (hypertension) depression Vaginal delivery Home Medications NK 10/05/21 [History Last Taken Unknown] Allergy/AdvReac Type Severity Reaction Status Date / Time No Known Allergies Allergy Verified 10/05/21 16:55 Surgical History History of appendectomy S/P tonsillectomy Social History Smoking Status: Never smoker alcohol intake: never ROS ROS ED Eyes Eyes: Denies blurry vision ENT ENT ED: Denies rhinorrhea or sore throat Cardiovascular Cardiovascular: Denies palpitations or racing heartbeat Respiratory/Chest Respiratory/Chest: Denies cough or dyspnea Gastrointestinal Gastrointestinal: Reports abdominal pain; Denies nausea or vomiting Genitourinary Genitourinary ED: Reports other Details: Vaginal bleeding Musculoskeletal Musculoskeletal: Denies arthralgias or myalgias Integumentary Denies abscess or Abrasions Neurologic Neurologic: Denies headache(s) or paresthesias Psychiatric Psychiatric: Denies anxiety or depression EXAM Physical Exam Const Vital Signs: 10/05/21 16:56 10/05/21 18:12 Temperature 98.8 F Temperature Source Temporal Pulse Rate 95 78 Respiratory Rate 16 16 Blood Pressure 130/102 H 123/75 H Blood Pressure Mean 111 91 Pulse Ox 100 Oxygen Delivery Method Room Air Positive well nourished General Appearance ED: NAD HEENT Reports TM's clear and moist mucous membranes Tympanic Membrane ED: Yes TM's clear Eyes PERRL and EOMs intact bilaterally General Eye ED: Negative for pale conjunctiva or scleral icterus Resp normal respiratory effort and clear to auscultation bilaterally Auscultation: Negative for rales, rhonchi or wheezes Cardio regular rate and regular rhythm Narrative: Midline and right pelvic tenderness to palpation. No peritoneal signs. No CVA tenderness. Extremity normal to inspection Neuro oriented x3 and CN's II-XII intact bilaterally Sensorium / Orientation: alert Motor Exam: strength 5/5 throughout Psych mental status grossly normal Skin no rashes or lesions noted MDM MDM MDM Narrative Medical decision making narrative: Patient presenting with vaginal bleeding in . She estimates she is about 5 weeks . Blood work is obtained and her CBC and BMP are unremarkable. hCG is 80. At about 1830 the patient came out to me and stated that she had a couple of clots she passed while she was urinating. She requested something for cramping and was given Tylenol. Transvaginal ultrasound does not identify any ectopic or intrauterine gestation. Since hCG is so low at 80 at 5 to 6 weeks gestation I suspect the patient is miscarrying. 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 Patient declined any analgesia or antiemetics for home. She is O+ so she does not need RhoGAM. Impression: 1. Vaginal bleeding 2. Miscarriage 3. Pelvic cramping Lab Data Labs: Laboratory Results - last 24 hr 10/05/21 10/05/21 10/05/21 17:11 17:11 17:11 WBC 7.5 RBC 4.11 L Hgb 12.3 Hct 36.9 L MCV 89.8 MCH 29.9 MCHC 33.3 RDW Std Deviation 42.6 RDW Coeff of Nirali 13.2 Plt Count 239 MPV 11.0 Immature Gran % (Auto) 0.100 Neut % (Auto) 64.6 Lymph % (Auto) 21.8 Dukes % (Auto) 10.9 H Eos % (Auto) 2.1 Baso % (Auto) 0.5 Absolute Neuts (auto) 4.8 Absolute Lymphs (auto) 1.63 Nucleated RBC % 0 Sodium 140 Potassium 3.8 Chloride 109 H Carbon Dioxide 26.0 Anion Gap 5 BUN 14 Creatinine 0.89 Estim Creat Clear Calc 97.48 Est GFR (MDRD) Af Amer 99 Est GFR (MDRD) Non-Af 82 BUN/Creatinine Ratio 15.7 Glucose 119 H Calcium 8.8 Total Bilirubin 0.30 AST 19 ALT 17 Alkaline Phosphatase 53 Total Protein 7.0 Albumin 3.7 Globulin 3.3 Albumin/Globulin Ratio 1.1 HCG, Quant 80 H Blood Type Antibody Screen 10/05/21 17:11 WBC RBC Hgb Hct MCV MCH MCHC RDW Std Deviation RDW Coeff of Nirali Plt Count MPV Immature Gran % (Auto) Neut % (Auto) Lymph % (Auto) Dukes % (Auto) Eos % (Auto) Baso % (Auto) Absolute Neuts (auto) Absolute Lymphs (auto) Nucleated RBC % Sodium Potassium Chloride Carbon Dioxide Anion Gap BUN Creatinine Estim Creat Clear Calc Est GFR (MDRD) Af Amer Est GFR (MDRD) Non-Af BUN/Creatinine Ratio Glucose Calcium Total Bilirubin AST ALT Alkaline Phosphatase Total Protein Albumin Globulin Albumin/Globulin Ratio HCG, Quant Blood Type O POSITIVE Antibody Screen NEGATIVE Radiography Diagnostic Testing: Clinical Impression(s) from Imaging Studies Obstetrics Ultrasound 10/05/21 17:27 IMPRESSION: Thickened endometrium but no intrauterine gestational sac. Differential diagnosis includes an early intrauterine , early ectopic , or missed . Correlation with serial beta Hg measurements is recommended. Electronically Signed: Emmanuel Minor MD at 19:09 EDT , Discharge Plan Triage Chief Complaint: Vag Bld, Preg ED Provider: Nicolas Suarez Dx/Rx/DC Orders Instructions: ED MISCARRIAGE Incomplete Prescriptions: No Action NK Primary Care Provider: MARIA INES DE LEON Referrals: Irineo Kim MD [NON-STAFF] - Disposition Disposition: Home, Self Care
[2021-10-05 17:45] LABS: ALB/GLOB Ratio 1.1 RATIO (0.9-2.4); AST(SGOT) 19 U/L (15-37); Alanine Aminotransfer ALT/SGPT 17 U/L (13-56); Albumin, Serum 3.7 g/dL (3.2-5.0); Alkaline Phosphatase 53 U/L (45-117); Anion Gap 5 (5-15); BUN 14 mg/dL (7-18); BUN/Creat Ratio 15.7 RATIO (10-20); Calcium,Total 8.8 mg/dL (8.5-10.1); Chloride 109 mmol/L (98-107); Creatinine, Serum 0.89 mg/dL (0.55-1.02); EST Glomerular Filtration Rate 82 mL/min (>60); Est Glom Filt Rate - Afr Amer 99 mL/min (>60); Estimated Creatinine Clearance 97.48 ml/min; Globulin 3.3 g/dL (2.2-4.2); Glucose 119 mg/dL (74-106); Potassium 3.8 mmol/L (3.5-5.1); Sodium Level 140 mmol/L (136-145)
[2021-10-05 17:47] LABS: hCG Titer Quant., Serum 80 mIU/mL (1-3)
[2021-10-05 18:12] VITALS: BP 123/75; PULSE 78; RESP 16
[2021-10-05] MEDS: Acetaminophen 500 MG Tablet 1000 MG PO (18:16)
== END 2021-10-05 19:32 | disposition home or self-care (01) ==
PROVIDERS: Emergency Provider Student in an Organized Health Care Education/Training Program; Visit Provider Student in an Organized Health Care Education/Training Program
DX: O03.9 Complete or unspecified spontaneous abortion without complication (principal); O26.891 Other specified pregnancy related conditions, first trimester; Z3A.01 Less than 8 weeks gestation of pregnancy; R10.2 Pelvic and perineal pain
CPT/HCPCS: 76817; 80053; 84702; 85025; 86850; 86900; 86901; 99283